=== PATIENT | male | born 1945 | race Hispanic/Latino ===

== ENCOUNTER 2018-03-03 12:20 | Inpatient (IN) | payer MEDICARE ==
[~2018-03-03] VITALS: Ht 170.2 cm; Wt 108.2 kg
[2018-03-03] MEDS ORDERED: PANTOPRAZOLE 40 MG 10ML VIAL IV STA ×2 (13:07)
[2018-03-03] MEDS ORDERED: SODIUM CHLORIDE 0.9% 1000ML 1,000 ML IV STA (13:07)
[2018-03-03] MEDS ORDERED: OCTREOTIDE ACETATE 500 MCG in SODIUM CHLORIDE 0.9% 250ML 250 ML IV ONE (13:15)
[2018-03-03] MEDS ORDERED: CEFEPIME HCL 2 GM VIAL IV ONE (13:15)
[2018-03-03 13:23] LABS: BASOPHILS % 0.7 % (0.0-1.0); EOSINOPHILS # (AUTO) 0.3 (0.0-0.4); EOSINOPHILS % 4.5 % (0.0-6.0); HEMATOCRIT 31.4 % (38.2-49.6); HEMOGLOBIN 11.2 g/dL (14.0-18.0); LYMPHOCYTES # (AUTO) 1.3 (1.0-3.2); LYMPHOCYTES % 22.9 % (18.0-39.1); MEAN CORPUSCULAR HEMOGLOBIN 37.6 pg (28-32); MEAN CORPUSCULAR HGB CONC 35.7 g/dL (31-35); MEAN CORPUSCULAR VOLUME 105.4 fL (81-99); MONOCYTES # (AUTO) 0.5 (0.2-0.8); MONOCYTES % 9.7 % (4.4-11.3); NEUTROPHILS # (AUTO) 3.4 (2.1-6.9); RED BLOOD COUNT 2.98 x10e6/uL (4.3-5.7); RED CELL DISTRIBUTION WIDTH 14.2 % (11.7-14.4)
[2018-03-03 13:28] LABS: INR 1.76; PARTIAL THROMBOPLASTIN TIME 42.4 seconds (23.8-35.5); PROTHROMBIN TIME 21.9 seconds (11.9-14.5)
[2018-03-03 13:29] LABS: PLATELET COUNT 84 x10e3/uL (140-360)
[2018-03-03] MEDS ORDERED: CEFEPIME HCL 2 GM VIAL IV NR (13:30)
[2018-03-03] MEDS ORDERED: LOSARTAN POTAS100 MG PO (14:02)
[2018-03-03] MEDS ORDERED: LEVOTHYROXINE75 MCG PO (14:02)
[2018-03-03] MEDS ORDERED: PROPRANOLOL HCL20 MG PO (14:03)
[2018-03-03 14:57] LABS: ALANINE AMINOTRANSFERASE 36 IU/L (0-55); ALBUMIN 2.5 g/dL (3.5-5.0); ALBUMIN/GLOBULIN RATIO 0.7 (0.8-2.0); ALKALINE PHOSPHATASE 189 IU/L (40-150); AMYLASE 99 U/L (25-125); ANION GAP 14.1 mmol/L (8-16); BLOOD UREA NITROGEN 17 mg/dL (7-26); BUN/CREATININE RATIO 22 (6-25); CALCIUM 8.1 mg/dL (8.4-10.2); CARBON DIOXIDE 19 mmol/L (22-29); CHLORIDE 106 mmol/L (98-107); CREATININE, SERUM 0.79 mg/dL (0.72-1.25); EST GLOMERULAR FILTRATION RATE > 60 ML/MIN (60-); GLUCOSE 104 mg/dL (74-118); LIPASE 90 U/L (8-78); POTASSIUM 4.1 mmol/L (3.5-5.1); SODIUM 135 mmol/L (136-145)
[2018-03-03] MEDS ORDERED: PHYTONADIONE 10 MG/ML AMP SC ONE (15:15)
[2018-03-03] MEDS ORDERED: PROMETHAZINE 12.5MG/ NACL 0.9% 12.5 MG/50 ML BAG IV PRN (15:30)
[2018-03-03] MEDS ORDERED: HYDROMORPHONE 2MG/ML 2 MG/ML ML IV ONE (15:30)
[2018-03-03] MEDS ORDERED: ONDANSETRON HCL INJ 2 MG/ML VIAL IV PRN (15:30)
[2018-03-03] MEDS ORDERED: DIPHENHYDRAMINE HCL INJ 50 MG/ML VIAL IV PRN (15:30)
[2018-03-03] MEDS ORDERED: LACTULOSE SYRUP 20 GM/30 ML UDC PO PRN (15:30)
[2018-03-03] MEDS ORDERED: DIATRIZOATE MEGL/DIATRIZOA SOD 30 ML BTL PO ONE (15:53)
[2018-03-03] MEDS: MORPHINE SULFATE 2 MG/ML SYR IV PRN (16:05)
--- NOTE | 2018-03-03 17:20 | Diagnostic Imaging Report ---
EXAM: CT Abdomen and Pelvis WITHOUT contrast INDICATION: Cirrhosis. Dark stools. Pancreatitis. Gastritis. Colitis. COMPARISON: None. TECHNIQUE: Abdomen and pelvis were scanned utilizing a multidetector helical scanner from the lung base to the pubic symphysis without administration of IV contrast. Absence of intravenous contrast decreases sensitivity for detection of focal lesions and vascular pathology. Coronal and sagittal reformations were obtained. Routine protocol was performed. IV CONTRAST: None. ORAL CONTRAST: Water RADIATION DOSE: Total DLP: ... mGy*cm Estimated effective dose: (DLP x 0.015 x size factor) mSv All CT scans are performed using radiation dose reduction techniques. Technical factors are evaluated and adjusted to ensure appropriate moderation of exposure. Automated dose management technology is applied to adjust the radiation dose to minimize exposure while achieving a diagnostic-quality image. COMPLICATIONS: None FINDINGS: LINES and TUBES: None. LOWER THORAX: Scarring/atelectasis at the lung bases with calcified pleural plaques. HEPATOBILIARY: Shrunken liver with nodular contour consistent with cirrhosis. No biliary ductal dilation. GALLBLADDER: Not well seen SPLEEN: Enlarged spleen measuring 15.0 cm in length. PANCREAS: No focal masses or ductal dilatation. ADRENALS: No adrenal nodules KIDNEYS/URETERS: No hydronephrosis. No cystic or solid mass lesions. No stones. GI TRACT: No abnormal distention, wall thickening, or evidence of bowel obstruction. Scattered diverticulosis without evidence of diverticulitis. Small hiatal hernia. Questionable thickening of the gastric mucosa could be due to gastritis. PELVIC ORGANS/BLADDER: Unremarkable. LYMPH NODES: No lymphadenopathy. VESSELS: Venous collaterals in the left upper abdomen PERITONEUM / RETROPERITONEUM: Moderate ascites. No free air is seen BONES: Unremarkable. SOFT TISSUES: Unremarkable. IMPRESSION: 1. Findings consistent with cirrhosis and portal hypertension with shrunken nodular liver, ascites, splenomegaly and venous collaterals in the left upper abdomen. 2. Questionable thickening of the gastric mucosa could be due to gastritis. 3. Scattered diverticulosis without evidence of diverticulitis. 4. GI consultation recommended. Signed by: Dr. Christoph Champion M.D. on 03/03/2018 5:16 PM
[2018-03-03 17:23] VITALS: BP 151/63
[2018-03-03 17:38] VITALS: BP 151/63
[2018-03-03] MEDS: SODIUM CHLORIDE 0.9% 1000ML 1,000 ML IV SCH ×2 (17:40→23:29)
[2018-03-03 20:00] VITALS: BP 137/64
--- NOTE | 2018-03-03 21:45 | Consultation ---
DATE OF CONSULTATION: March 03, 2018 HISTORY: This is a 73-year-old gentleman who has history of cirrhosis, presented to the hospital because of problems with black tarry stool for 1 day. Patient denies any abdominal pain, nausea, or vomiting. His workup so far revealed that he has bilirubin of 6.8 with AST of 57, and the WBC of 5.5 and hemoglobin 11.2. He also has coagulopathy with PT of 21, INR 1.76. He said that last time when he had upper endoscopy it was about 2 years ago. He did have a CAT scan of abdomen and pelvis which shows cirrhosis with portal hypertension, known splenomegaly, thickening of the gastric mucosa, diverticulosis. OTHER MEDICAL PROBLEMS: Again significant for history of cirrhosis history of hypertension, he denies any history of alcohol abuse. He denies any history of hepatitis. ALLERGIES: COLCHICINE. MEDICATIONS: He is supposed to be on octreotide and pantoprazole. SOCIAL HISTORY: He denies any alcohol use. FAMILY HISTORY: Noncontributory. REVIEW OF SYSTEMS: At this point, he denies any chest pain. Denies any shortness of breath. Denies any dysphagia or odynophagia. Denies any dysuria, hematuria, or syncopal episodes. PHYSICAL EXAMINATION: GENERAL: Patient is awake, alert, appeared to be stable, not in acute distress at this point. VITAL SIGNS: Afebrile currently. HEAD, EYES, EARS, NOSE, AND THROAT: Normocephalic. Sclerae are icteric. NECK: Supple. HEART: Regular. LUNGS: Clear. ABDOMEN: Soft. There is no distention at this point and is nontender. EXTREMITIES: No clubbing. LAB VALUES: PT 21.9, INR 1.76. Sodium 135, bilirubin of 6.8, AST of 57, ALT of 36. WBC of 5.55, hemoglobin of 11.2, hematocrit of 31, and platelet count of 84,000. CT scan essentially showed cirrhosis with evidence of portal hypertension, there is thickening of the stomach. IMPRESSION: 1. Gastrointestinal bleed. Patient having some black tarry stool, obviously with history of esophageal varices. 2. Anemia. 3. Elevation liver function tests. RECOMMENDATIONS: Continue proton pump inhibitor as well as simvastatin. I will give FFPs at this point. Follow labs and proceed with EGD for further evaluation tomorrow and follow clinically. Job#: [id number] cc:MD MAYCO NUNEZ MD
[2018-03-03] MEDS ORDERED: SODIUM CHLORIDE 0.9% 250ML 250 ML ONE (22:57)
[2018-03-03] MEDS: PANTOPRAZOLE 40 MG 10ML VIAL IV SCH (23:29)
[2018-03-04] VITALS: BP 130/61
[2018-03-04 04:00] VITALS: BP 118/56
[2018-03-04] MEDS: OCTREOTIDE ACETATE 500 MCG in SODIUM CHLORIDE 0.9% 250ML 250 ML IV SCH ×2 (04:09→14:03)
[2018-03-04 05:21] LABS: INR 1.83; PROTHROMBIN TIME 22.6 seconds (11.9-14.5)
[2018-03-04 05:29] LABS: ALANINE AMINOTRANSFERASE 27 IU/L (0-55); ALBUMIN 2.2 g/dL (3.5-5.0); ALBUMIN/GLOBULIN RATIO 0.8 (0.8-2.0); ALKALINE PHOSPHATASE 119 IU/L (40-150); ANION GAP 12.2 mmol/L (8-16); BLOOD UREA NITROGEN 19 mg/dL (7-26); BUN/CREATININE RATIO 23 (6-25); CALCIUM 7.4 mg/dL (8.4-10.2); CARBON DIOXIDE 18 mmol/L (22-29); CHLORIDE 106 mmol/L (98-107); CREATININE, SERUM 0.84 mg/dL (0.72-1.25); EST GLOMERULAR FILTRATION RATE > 60 ML/MIN (60-); GLUCOSE 111 mg/dL (74-118); POTASSIUM 4.2 mmol/L (3.5-5.1); SODIUM 132 mmol/L (136-145)
[2018-03-04 06:51] LABS: BASOPHILS % 0.7 % (0.0-1.0); EOSINOPHILS # (AUTO) 0.2 (0.0-0.4); EOSINOPHILS % 3.5 % (0.0-6.0); HEMATOCRIT 25.9 % (38.2-49.6); HEMOGLOBIN 9.1 g/dL (14.0-18.0); LYMPHOCYTES # (AUTO) 0.9 (1.0-3.2); LYMPHOCYTES % 21.1 % (18.0-39.1); MEAN CORPUSCULAR HEMOGLOBIN 37.6 pg (28-32); MEAN CORPUSCULAR HGB CONC 35.1 g/dL (31-35); MONOCYTES # (AUTO) 0.5 (0.2-0.8); MONOCYTES % 11.3 % (4.4-11.3); NEUTROPHILS # (AUTO) 2.7 (2.1-6.9); NEUTROPHILS % 63.2 % (38.7-80.0); RED BLOOD COUNT 2.42 x10e6/uL (4.3-5.7); RED CELL DISTRIBUTION WIDTH 13.9 % (11.7-14.4)
[2018-03-04 06:53] LABS: PLATELET COUNT 39 x10e3/uL (140-360)
[2018-03-04 07:36] LABS: PLATELET ESTIMATE MARKEDLY DECREASED; PLATELET MORPHOLOGY COMMENT NORMAL
[2018-03-04] MEDS: PANTOPRAZOLE 40 MG 10ML VIAL IV SCH ×2 (08:38→21:40)
[2018-03-04] MEDS: MORPHINE SULFATE 2 MG/ML SYR IV PRN (08:40)
[2018-03-04] MEDS: SODIUM CHLORIDE 0.9% 1000ML 1,000 ML IV SCH ×2 (09:50→21:54)
--- NOTE | 2018-03-04 10:26 | History and Physical ---
CHIEF COMPLAINT: Upper GI bleed and esophageal varices. HISTORY: This is a 73-year-old male who presented to the hospital with black tarry stool for approximately 1-2 days. Patient was sent in by his primary care physician, Dr. Shaheen Meyer. The patient has a history of liver cirrhosis. His hemoglobin dropped down 9.1. The patient is otherwise stable. INR is 1.7. The patient had endoscopy approximately 2 years ago. The patient does have liver cirrhosis with portal hypertension and splenomegaly. PAST MEDICAL HISTORY: Known liver cirrhosis with splenomegaly, portal hypertension, diverticulosis. PAST SURGICAL HISTORY: Noncontributory. SOCIAL HISTORY: Patient does not smoke or use alcohol. No recreational drugs. ALLERGIES: COLCHICINE. HOME MEDICATIONS: List is reviewed. REVIEW OF SYSTEMS: No chest pain. No shortness breath. No nausea or vomiting at this time. Positive for black tarry stool. No headache. PHYSICAL EXAMINATION VITAL SIGNS: Temperature is 98, blood pressure 118/56, pulse rate 69, respirations 18. GENERAL: The patient is not in acute distress. He is awake. HEENT: Normocephalic, atraumatic and anicteric. NECK: Supple grossly. PULMONARY: Diminished breath sounds bilaterally. CARDIOVASCULAR: S1 and S2. Regular rate and rhythm. ABDOMEN: Soft. Generalized discomfort. No rebound or guarding. EXTREMITIES: No cyanosis or edema. NEUROLOGICAL: No gross focal deficit. LABORATORY: WBC is 5.5, hemoglobin 11.2 and now down to 9.1, hematocrit 31.4 and now down to 25.9, and platelets are 84,000, and now down to 39. Chemistry: Sodium is 132, potassium 4.2, chloride 106, bicarb 18, BUN 19, creatinine 0.8, glucose is 111. CT scan of the abdomen and pelvis that was done showed that the patient has liver cirrhosis, portal hypertension with shrinking nodular liver, ascites, splenomegaly, and venous collateral to the left upper abdomen. Question thickening of the gastric mucosa due to gastritis. Scattered diverticulosis without diverticulitis. IMPRESSION 1. Sovpr-gy-hloedol blood loss anemia secondary to liver cirrhosis with melena. 2. Baseline liver cirrhosis with advanced varices, most likely with splenomegaly and nodular liver along with portal hypertension. PLAN: The patient will need endoscopy. He will be admitted. Will monitor his blood count closely. PPI. Simvastatin. The patient will have endoscopy today. Job#: [id number] RI
[2018-03-04 11:26] VITALS: BP 144/57
[2018-03-04 16:06] LABS: HEMATOCRIT 26.8 % (38.2-49.6); HEMOGLOBIN 9.5 g/dL (14.0-18.0)
[2018-03-04 16:26] LABS: ANION GAP 13.2 mmol/L (8-16); BLOOD UREA NITROGEN 18 mg/dL (7-26); BUN/CREATININE RATIO 21 (6-25); CALCIUM 7.6 mg/dL (8.4-10.2); CARBON DIOXIDE 18 mmol/L (22-29); CHLORIDE 106 mmol/L (98-107); CREATININE, SERUM 0.86 mg/dL (0.72-1.25); EST GLOMERULAR FILTRATION RATE > 60 ML/MIN (60-); GLUCOSE 112 mg/dL (74-118); POTASSIUM 4.2 mmol/L (3.5-5.1); SODIUM 133 mmol/L (136-145)
[2018-03-04 16:49] VITALS: BP 152/69
[2018-03-04] MEDS ORDERED: PROPOFOL IV EMULSION 10 MG/ML 20 ML VIAL ONE (19:35)
[2018-03-04 20:00] VITALS: BP 143/66
[2018-03-04] MEDS ORDERED: PHYTONADIONE 5 MG TAB PO ONE (22:00)
[2018-03-05] VITALS (8 sets, daily range): BP systolic 133–160; BP diastolic 61–70
[2018-03-05] MEDS: OCTREOTIDE ACETATE 500 MCG in SODIUM CHLORIDE 0.9% 250ML 250 ML IV SCH (00:06)
[2018-03-05] MEDS ORDERED: OCTREOTIDE ACETATE 1 ML ONE (02:11)
[2018-03-05] MEDS ORDERED: SODIUM CHLORIDE 0.9% 250ML 250 ML ONE (02:16)
[2018-03-05 05:25] LABS: BASOPHILS % 0.6 % (0.0-1.0); EOSINOPHILS # (AUTO) 0.1 (0.0-0.4); HEMATOCRIT 23.2 % (38.2-49.6); HEMOGLOBIN 8.2 g/dL (14.0-18.0); LYMPHOCYTES # (AUTO) 0.9 (1.0-3.2); LYMPHOCYTES % 27.1 % (18.0-39.1); MEAN CORPUSCULAR HEMOGLOBIN 37.4 pg (28-32); MEAN CORPUSCULAR HGB CONC 35.3 g/dL (31-35); MEAN CORPUSCULAR VOLUME 105.9 fL (81-99); MONOCYTES # (AUTO) 0.4 (0.2-0.8); MONOCYTES % 10.9 % (4.4-11.3); NEUTROPHILS # (AUTO) 1.9 (2.1-6.9); NEUTROPHILS % 57.1 % (38.7-80.0); RED BLOOD COUNT 2.19 x10e6/uL (4.3-5.7); RED CELL DISTRIBUTION WIDTH 13.7 % (11.7-14.4)
[2018-03-05 05:27] LABS: PLATELET COUNT 31 x10e3/uL (140-360)
[2018-03-05 05:50] LABS: ANION GAP 10.9 mmol/L (8-16); BLOOD UREA NITROGEN 16 mg/dL (7-26); BUN/CREATININE RATIO 21 (6-25); CALCIUM 7.3 mg/dL (8.4-10.2); CARBON DIOXIDE 19 mmol/L (22-29); CHLORIDE 112 mmol/L (98-107); CREATININE, SERUM 0.78 mg/dL (0.72-1.25); EST GLOMERULAR FILTRATION RATE > 60 ML/MIN (60-); GLUCOSE 133 mg/dL (74-118); POTASSIUM 3.9 mmol/L (3.5-5.1); SODIUM 138 mmol/L (136-145)
[2018-03-05 06:11] LABS: FERRITIN 492.84 ng/mL (21.81-274.66)
[2018-03-05 06:42] LABS: FOLATE 16.7 ng/mL (7.0-15.4)
[2018-03-05] MEDS: PHYTONADIONE 5 MG TAB PO SCH (09:00)
[2018-03-05] MEDS: PANTOPRAZOLE 40 MG 10ML VIAL IV SCH ×2 (09:00→20:31)
[2018-03-05] MEDS ORDERED: FUROSEMIDE INJ 10 MG/ML 4 ML VIAL IV NR (14:00)
[2018-03-05 14:32] LABS: HEMATOCRIT 23.4 % (38.2-49.6); HEMOGLOBIN 8.2 g/dL (14.0-18.0)
[2018-03-05] MEDS: PROPRANOLOL HCL 10 MG TAB PO SCH (17:00)
[2018-03-05] MEDS: RIFAXIMIN 550 MG TABLET PO SCH (17:00)
[2018-03-05] MEDS ORDERED: FUROSEMIDE INJ 10 MG/ML 4 ML VIAL IV ONE (21:15)
[2018-03-06] VITALS (8 sets, daily range): BP systolic 117–146; BP diastolic 57–87
[2018-03-06 05:33] LABS: BASOPHILS % 0.6 % (0.0-1.0); EOSINOPHILS # (AUTO) 0.1 (0.0-0.4); EOSINOPHILS % 3.3 % (0.0-6.0); LYMPHOCYTES % 30.7 % (18.0-39.1); MEAN CORPUSCULAR HEMOGLOBIN 38.3 pg (28-32); MEAN CORPUSCULAR HGB CONC 36.4 g/dL (31-35); MEAN CORPUSCULAR VOLUME 105.3 fL (81-99); MONOCYTES # (AUTO) 0.4 (0.2-0.8); MONOCYTES % 10.8 % (4.4-11.3); NEUTROPHILS # (AUTO) 1.8 (2.1-6.9); NEUTROPHILS % 54.3 % (38.7-80.0); RED BLOOD COUNT 2.09 x10e6/uL (4.3-5.7); RED CELL DISTRIBUTION WIDTH 13.7 % (11.7-14.4)
[2018-03-06 05:36] LABS: PLATELET COUNT 28 x10e3/uL (140-360)
[2018-03-06 05:48] LABS: INR 1.94; PROTHROMBIN TIME 23.7 seconds (11.9-14.5)
[2018-03-06 05:49] LABS: PARTIAL THROMBOPLASTIN TIME 44.2 seconds (23.8-35.5)
[2018-03-06 05:53] LABS: ALANINE AMINOTRANSFERASE 27 IU/L (0-55); ALBUMIN/GLOBULIN RATIO 0.8 (0.8-2.0); ALKALINE PHOSPHATASE 98 IU/L (40-150); ANION GAP 10.7 mmol/L (8-16); BLOOD UREA NITROGEN 13 mg/dL (7-26); BUN/CREATININE RATIO 18 (6-25); CALCIUM 7.2 mg/dL (8.4-10.2); CARBON DIOXIDE 20 mmol/L (22-29); CHLORIDE 110 mmol/L (98-107); CREATININE, SERUM 0.73 mg/dL (0.72-1.25); EST GLOMERULAR FILTRATION RATE > 60 ML/MIN (60-); GLUCOSE 104 mg/dL (74-118); POTASSIUM 3.7 mmol/L (3.5-5.1); SODIUM 137 mmol/L (136-145)
[2018-03-06] MEDS: LEVOTHYROXINE SODIUM 75 MCG TAB PO SCH (06:11)
[2018-03-06] MEDS: PHYTONADIONE 5 MG TAB PO SCH (08:54)
[2018-03-06] MEDS: PANTOPRAZOLE 40 MG 10ML VIAL IV SCH (08:54)
[2018-03-06] MEDS: RIFAXIMIN 550 MG TABLET PO SCH ×2 (08:54→17:29)
[2018-03-06] MEDS: PROPRANOLOL HCL 10 MG TAB PO SCH ×2 (08:54→17:29)
[2018-03-06] MEDS ORDERED: SPIRONOLACTONE 25 MG TAB PO ONE (12:35)
[2018-03-06] MEDS ORDERED: FUROSEMIDE INJ 10 MG/ML 4 ML VIAL IV ONE (12:35)
[2018-03-06] MEDS ORDERED: SODIUM CHLORIDE 0.9% 250ML 250 ML ONE (16:17)
[2018-03-06] MEDS: PANTOPRAZOLE SOD 40 MG TABEC PO SCH (17:29)
[2018-03-07] VITALS (9 sets, daily range): BP systolic 108–149; BP diastolic 53–98
[2018-03-07 04:52] LABS: BASOPHILS % 0.4 % (0.0-1.0); EOSINOPHILS # (AUTO) 0.1 (0.0-0.4); EOSINOPHILS % 4.6 % (0.0-6.0); HEMATOCRIT 21.9 % (38.2-49.6); HEMOGLOBIN 7.8 g/dL (14.0-18.0); LYMPHOCYTES % 34.9 % (18.0-39.1); MEAN CORPUSCULAR HEMOGLOBIN 37.3 pg (28-32); MEAN CORPUSCULAR HGB CONC 35.6 g/dL (31-35); MEAN CORPUSCULAR VOLUME 104.8 fL (81-99); MONOCYTES # (AUTO) 0.3 (0.2-0.8); MONOCYTES % 10.7 % (4.4-11.3); NEUTROPHILS # (AUTO) 1.4 (2.1-6.9); RED BLOOD COUNT 2.09 x10e6/uL (4.3-5.7); RED CELL DISTRIBUTION WIDTH 13.7 % (11.7-14.4)
[2018-03-07 04:55] LABS: PLATELET COUNT 37 x10e3/uL (140-360)
[2018-03-07] MEDS: LEVOTHYROXINE SODIUM 75 MCG TAB PO SCH (04:58)
[2018-03-07 07:54] LABS: HEMATOCRIT 21.8 % (38.2-49.6); HEMOGLOBIN 7.9 g/dL (14.0-18.0)
[2018-03-07] MEDS: FUROSEMIDE INJ 10 MG/ML 4 ML VIAL IV SCH (08:25)
[2018-03-07] MEDS: PANTOPRAZOLE SOD 40 MG TABEC PO SCH ×2 (08:25→16:36)
[2018-03-07] MEDS: SPIRONOLACTONE 25 MG TAB PO SCH (08:25)
[2018-03-07] MEDS: PROPRANOLOL HCL 10 MG TAB PO SCH ×2 (08:25→16:36)
[2018-03-07] MEDS: PHYTONADIONE 5 MG TAB PO SCH (08:25)
[2018-03-07] MEDS: RIFAXIMIN 550 MG TABLET PO SCH ×2 (08:25→16:36)
[2018-03-07] MEDS ORDERED: FUROSEMIDE INJ 10 MG/ML 4 ML VIAL IV NR (19:00)
[2018-03-07] MEDS ORDERED: FUROSEMIDE INJ 10 MG/ML 2 ML VIAL IV ONE (21:30)
[2018-03-08 00:45] VITALS: BP 134/59
[2018-03-08 04:55] LABS: BASOPHILS % 0.3 % (0.0-1.0); EOSINOPHILS # (AUTO) 0.2 (0.0-0.4); EOSINOPHILS % 5.8 % (0.0-6.0); HEMATOCRIT 22.3 % (38.2-49.6); HEMOGLOBIN 8.2 g/dL (14.0-18.0); LYMPHOCYTES % 33.5 % (18.0-39.1); MEAN CORPUSCULAR HGB CONC 36.8 g/dL (31-35); MEAN CORPUSCULAR VOLUME 103.2 fL (81-99); MONOCYTES # (AUTO) 0.4 (0.2-0.8); MONOCYTES % 11.3 % (4.4-11.3); NEUTROPHILS # (AUTO) 1.5 (2.1-6.9); NEUTROPHILS % 48.8 % (38.7-80.0); RED BLOOD COUNT 2.16 x10e6/uL (4.3-5.7); RED CELL DISTRIBUTION WIDTH 13.8 % (11.7-14.4)
[2018-03-08 04:58] LABS: PLATELET COUNT 43 x10e3/uL (140-360)
[2018-03-08] MEDS: LEVOTHYROXINE SODIUM 75 MCG TAB PO SCH (05:34)
[2018-03-08 05:36] VITALS: BP 117/56
[2018-03-08 06:30] LABS: INR 1.89; PROTHROMBIN TIME 23.2 seconds (11.9-14.5)
[2018-03-08 06:31] LABS: PARTIAL THROMBOPLASTIN TIME 43.3 seconds (23.8-35.5)
[2018-03-08 08:00] VITALS: BP 111/54
[2018-03-08] MEDS: SPIRONOLACTONE 25 MG TAB PO SCH (08:48)
[2018-03-08] MEDS: PROPRANOLOL HCL 10 MG TAB PO SCH (08:48)
[2018-03-08] MEDS: RIFAXIMIN 550 MG TABLET PO SCH (08:48)
[2018-03-08] MEDS: PANTOPRAZOLE SOD 40 MG TABEC PO SCH (08:48)
[2018-03-08] MEDS: FUROSEMIDE INJ 10 MG/ML 4 ML VIAL IV SCH (08:48)
[2018-03-08 09:58] VITALS: BP 111/54
[2018-03-08] MEDS: PHYTONADIONE 5 MG TAB PO SCH (11:10)
[2018-03-08 12:00] VITALS: BP 123/53
--- NOTE | 2018-03-08 15:43 | Discharge Summary ---
PRIMARY CARE PHYSICIAN: Dr. Shaheen Meyer. CONSULTANTS 1. Dr. Nigel Cintron 2. Dr. Heather Gillespie FINAL DIAGNOSES 1. Acute blood loss anemia secondary to esophageal varices bleed status post esophagogastroduodenoscopy with esophageal banding. 2. Advanced liver cirrhosis. 3. Baseline multiple medical problems. SUMMARY: Patient is a 73-year-old male with esophageal varices, portal hypertension, liver cirrhosis advanced. Came in with hematemesis. The patient underwent an EGD. He had multiple bandings done. The patient is stable. He did not have any further bleed at this time. Patient is stable. Hemoglobin and hematocrit are 8.2 and 22.3. Platelets are 43,000. The patient is stable. No further bleed. He has chronic thrombocytopenia secondary to his advanced liver cirrhosis. Discussed with the patient at length. His coagulopathy was treated with vitamin K. Patient is stable at this time. He will go home today and follow up with Dr. Cintron within a week or two and his family physician within a week as well. The patient is stable and discharged home. Discussed with the patient at length. Job#: [id number]
== END 2018-03-08 14:46 | disposition home or self-care (01) | DRG 432 ==
LOC: ER 12:20 → ERHOLD 15:04 → IMCU 17:00 → OBSVTOIN 03-04 09:39 → MED/SURG2 03-04 21:11
PROVIDERS: ADMIT Internal Medicine; ATTEND Internal Medicine
PROC: 30233K1 Transfusion of Nonautologous Frozen Plasma into Peripheral Vein, Percutaneous Approach (ICD-10-PCS; 2018-03-03)
PROC: 06L38CZ Occlusion of Esophageal Vein with Extraluminal Device, Via Natural or Artificial Opening Endoscopic (ICD-10-PCS; principal; 2018-03-04 13:00)
PROC: 30233R1 Transfusion of Nonautologous Platelets into Peripheral Vein, Percutaneous Approach (ICD-10-PCS; 2018-03-06)
DX: K74.60 Unspecified cirrhosis of liver (principal); I85.11 Secondary esophageal varices with bleeding; D62 Acute posthemorrhagic anemia; R18.8 Other ascites; K76.6 Portal hypertension; D69.59 Other secondary thrombocytopenia; R16.1 Splenomegaly, not elsewhere classified; K57.90 Diverticulosis of intestine, part unspecified, without perforation or abscess without bleeding; Z88.8 Allergy status to other drugs, medicaments and biological substances; K31.89 Other diseases of stomach and duodenum; K44.9 Diaphragmatic hernia without obstruction or gangrene
CPT/HCPCS: 36415; 43235; 74176; 80048; 80053; 82105; 82140; 82150; 82248; 82270; 82607; 82728; 82746; 83540; 83690; 84443; 84466; 85014; 85018; 85025; 85610; 85730; 86850; 86900; 93005; 99284; G0378; J0692; J1940; J2270; J2353; J2405; J3430; J7030; J7050; P9017; P9034

== ENCOUNTER 2018-03-20 07:19 | Inpatient (IN) | payer MEDICARE ==
[~2018-03-20] VITALS: Ht 170.2 cm; Wt 100.4 kg
[~2018-03-20 07:19] MED LIST: LEVOTHYROXINE75 MCG PO; LOSARTAN POTAS100 MG PO; PROPRANOLOL HCL20 MG PO
--- OUTSIDE RECORDS SUMMARY | 2018-03-20 07:21 | XMS REPORT ---
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 Allergies, Adverse Reactions, Alerts This patient has no known allergies or adverse reactions. Medications This patient has no known medications. Results Test Description Test Time Test Comments Text Results Atomic Results Result Comments CT ABDOMEN/PELVIS WO 2018-03-03 17:09:00 [place] [address] Patient Name: GISELLE ETIENNE MR #: [id number] : 1945 Age/Sex: 73/M Req #: [id number] Adm Physician: MAYCO NIEVES MD Ordered by: GABRIELE ISAAC MD Report #: [id number] Location: [facility] Room/Bed: [place] [address] Procedure: [id number] CT/CT ABDOMEN/PELVIS WO Exam Date: 03/03/18 Exam Time: 1700 REPORT STATUS: Signed EXAM: CT Abdomen and Pelvis WITHOUT contrast INDIC ATION: Cirrhosis. Dark stools. Pancreatitis. Gastritis. Colitis. COMPARISON: None. TECHNIQUE: Abdomen and pelvis were scanned utilizing a multidetector helical scanner from the lung base to the pubic symphysis without administration of IV contrast. Absence of intravenous contrast decreases sensitivity for detection of focal lesions and vascular pathology. Coronal and sagittal reformations were obtained. Routine protocol was performed. IV CONTRAST: None. ORAL CONTRAST: Water RADIATION DOSE: Total DLP: ... mGy*cm Estimated effective dose: (DLP x 0.015 x size factor) mSv All CT scans are performed using radiation dose reduction techniques. Technical factors are evaluated and adjusted to ensure appropriate moderation of exposure. Automated dose management technology is applied to adjust the radiation dose to minimize exposure while achieving a diagnostic-quality image. COMPLICATIONS: None FINDINGS: LINES and TUBES: None. LOWER THORAX: Scarring/atelectasis at the lung bases with calcified pleural plaques. HEPATOBILIARY: Shrunken liver with nodular contour consistent with cirrhosis. No biliary ductal dilation. GALLBLADDER: Not well seen SPLEEN: Enlarged spleen measuring 15.0 cm in length. PANCREAS: No focal masses or ductal dilatation. ADRENALS: No adrenal nodules KIDNEYS/URETERS: No hydronephrosis. No cystic or solid mass lesions. No stones. GI TRACT: No abnormal distention, wall thickening, or evidence of bowel obstruction. Scattered diverticulosis without evidence of diverticulitis. Small hiatal hernia. Questionable thickening of the gastric mucosa could be due to gastritis. PELVIC ORGANS/BLADDER: Unremarkable. LYMPH NODES: No lymphadenopathy. VESSELS: Venous collaterals in the left upper abdomen PERITONEUM / RETROPERITONEUM: Moderate ascites. No free air is seen BONES: Unremarkable. SOFT TISSUES: Unremarkable. IMPRESSION: 1. Findings consistent with cirrhosis and portal hypertension with shrunken nodular liver, ascites, splenomegaly and venous collaterals in the left upper abdomen. 2. Questionable thickening of the gastric mucosa could be due to gastritis. 3. Scattered diverticulosis without evidence of diverticulitis. 4. GI consultation recommended. Signed by: Dr. Christoph Champion M.D. on 03/03/2018 5:16 PM Dictated By: CHRISTOPH CHAMPION MD, MD 15 Transcribed By: WOLF on 03/03/181715 COPY TO: GABRIELE ISAAC MD
[2018-03-20] MEDS ORDERED: FAMOTIDINE 20 MG/2 ML VIAL IV STA (07:35)
[2018-03-20 08:42] LABS: BASOPHILS % 0.5 % (0.0-1.0); EOSINOPHILS # (AUTO) 0.2 (0.0-0.4); EOSINOPHILS % 2.6 % (0.0-6.0); HEMATOCRIT 26.9 % (38.2-49.6); HEMOGLOBIN 9.9 g/dL (14.0-18.0); LYMPHOCYTES # (AUTO) 1.3 (1.0-3.2); LYMPHOCYTES % 17.2 % (18.0-39.1); MEAN CORPUSCULAR HEMOGLOBIN 37.6 pg (28-32); MEAN CORPUSCULAR HGB CONC 36.8 g/dL (31-35); MEAN CORPUSCULAR VOLUME 102.3 fL (81-99); MONOCYTES # (AUTO) 0.8 (0.2-0.8); MONOCYTES % 10.5 % (4.4-11.3); NEUTROPHILS # (AUTO) 5.1 (2.1-6.9); NEUTROPHILS % 68.8 % (38.7-80.0); PLATELET COUNT 67 x10e3/uL (140-360); RED BLOOD COUNT 2.63 x10e6/uL (4.3-5.7); RED CELL DISTRIBUTION WIDTH 14.1 % (11.7-14.4)
[2018-03-20 08:52] LABS: INR 1.74; PROTHROMBIN TIME 21.7 seconds (11.9-14.5)
[2018-03-20 09:00] LABS: ALANINE AMINOTRANSFERASE 38 IU/L (0-55); ALBUMIN 2.7 g/dL (3.5-5.0); ALBUMIN/GLOBULIN RATIO 0.6 (0.8-2.0); ALKALINE PHOSPHATASE 228 IU/L (40-150); ANION GAP 11.6 mmol/L (8-16); BLOOD UREA NITROGEN 14 mg/dL (7-26); BUN/CREATININE RATIO 16 (6-25); CALCIUM 8.6 mg/dL (8.4-10.2); CARBON DIOXIDE 19 mmol/L (22-29); CHLORIDE 107 mmol/L (98-107); EST GLOMERULAR FILTRATION RATE > 60 ML/MIN (60-); GLUCOSE 128 mg/dL (74-118); POTASSIUM 3.6 mmol/L (3.5-5.1); SODIUM 134 mmol/L (136-145)
[2018-03-20] MEDS ORDERED: SPIRONOLACTONE50 MG PO (10:55)
[2018-03-20] MEDS ORDERED: PANTOPRAZOLE SO40 MG PO (10:55)
[2018-03-20] MEDS ORDERED: FUROSEMIDE40 MG PO (10:55)
[2018-03-20] MEDS ORDERED: NIFEDIPINE CR 30 MG TAB PO NR (12:00)
[2018-03-20] MEDS ORDERED: PHYTONADIONE 10 MG/ML AMP SQ NR (12:00)
[2018-03-20 13:15] LABS: HEMATOCRIT 25.8 % (38.2-49.6); HEMOGLOBIN 9.4 g/dL (14.0-18.0)
[2018-03-20] MEDS: IRON SUCROSE 100 MG in SODIUM CHLORIDE 0.9% 100 ML 100 ML IV SCH (14:20)
[2018-03-20 15:32] LABS: HEMATOCRIT 26.2 % (38.2-49.6); HEMOGLOBIN 9.5 g/dL (14.0-18.0)
[2018-03-20 17:30] VITALS: BP 149/63
[2018-03-20 17:39] VITALS: BP 149/63
[2018-03-20 17:48] VITALS: BP 149/63
[2018-03-20 18:50] LABS: HEMATOCRIT 24.3 % (38.2-49.6); HEMOGLOBIN 8.8 g/dL (14.0-18.0)
[2018-03-20 20:00] VITALS: BP 153/75
[2018-03-20] MEDS: PROPRANOLOL HCL 10 MG TAB PO SCH (20:57)
[2018-03-20 21:47] VITALS: BP 153/65
[2018-03-20 23:02] LABS: HEMATOCRIT 23.3 % (38.2-49.6); HEMOGLOBIN 8.3 g/dL (14.0-18.0)
[2018-03-21] VITALS (8 sets, daily range): BP systolic 120–155; BP diastolic 59–67
[2018-03-21 02:23] LABS: HEMATOCRIT 22.2 % (38.2-49.6); HEMOGLOBIN 8.1 g/dL (14.0-18.0)
[2018-03-21 05:51] LABS: BASOPHILS % 0.6 % (0.0-1.0); EOSINOPHILS # (AUTO) 0.2 (0.0-0.4); EOSINOPHILS % 4.3 % (0.0-6.0); HEMATOCRIT 21.2 % (38.2-49.6); HEMOGLOBIN 7.8 g/dL (14.0-18.0); LYMPHOCYTES # (AUTO) 1.4 (1.0-3.2); LYMPHOCYTES % 30.4 % (18.0-39.1); MEAN CORPUSCULAR HGB CONC 36.8 g/dL (31-35); MEAN CORPUSCULAR VOLUME 103.4 fL (81-99); MONOCYTES # (AUTO) 0.5 (0.2-0.8); MONOCYTES % 9.6 % (4.4-11.3); NEUTROPHILS # (AUTO) 2.6 (2.1-6.9); NEUTROPHILS % 54.9 % (38.7-80.0); RED BLOOD COUNT 2.05 x10e6/uL (4.3-5.7); RED CELL DISTRIBUTION WIDTH 13.8 % (11.7-14.4)
[2018-03-21] MEDS: LEVOTHYROXINE SODIUM 75 MCG TAB PO SCH (05:54)
[2018-03-21 06:37] LABS: PLATELET COUNT 39 x10e3/uL (140-360)
[2018-03-21] MEDS: SPIRONOLACTONE 25 MG TAB PO SCH (08:23)
[2018-03-21] MEDS: PANTOPRAZOLE SOD 40 MG TABEC PO SCH (08:23)
[2018-03-21] MEDS: FUROSEMIDE 40 MG TAB PO SCH (08:24)
[2018-03-21] MEDS: NIFEDIPINE CR 30 MG TAB PO SCH (08:24)
[2018-03-21] MEDS: PROPRANOLOL HCL 10 MG TAB PO SCH ×2 (08:24→16:21)
[2018-03-21] MEDS ORDERED: PHYTONADIONE 10 MG/ML AMP SQ NR (09:45)
[2018-03-21] MEDS ORDERED: SODIUM CHLORIDE 0.9% 250ML 250 ML IV NR (10:00)
[2018-03-21] MEDS ORDERED: OCTREOTIDE ACETATE 500 MCG in SODIUM CHLORIDE 0.9% 250ML 250 ML IV STA (11:10)
[2018-03-21] MEDS: SUCRALFATE 1 GM TAB PO SCH ×3 (11:32→20:00)
--- NOTE | 2018-03-21 12:34 | Consultation ---
DATE OF CONSULTATION: March 21, 2018 HPI: This is a 73-year-old who has a history of cirrhosis, with esophageal varices status post banding before, presented to the hospital because of 1-day history of black tarry stool. Patient was found to have anemia, hemoglobin as low as 7.8. He also has thrombocytopenia with platelet count of 31 and also coagulopathy. His medical problem in the past is significant for history of cirrhosis with both hypertension and esophageal varices, status post banding on March 04, 2018. ALLERGIES: NONE. SOCIAL HISTORY: There is no alcohol abuse. FAMILY HISTORY: Noncontributory. REVIEW OF SYSTEMS: At this point, he denies any chest pain. Denies any shortness of breath. Denies any dysphagia or odynophagia. Denies any dysuria, hematuria, or any kind of syncopal episode. PHYSICAL EXAMINATION GENERAL: Patient is awake, alert, and appears to be stable. VITAL SIGNS: Afebrile with stable vital signs. HEAD, EYES, EARS, NOSE, AND THROAT: Normocephalic, atraumatic. Sclerae are icteric. NECK: Supple. HEART: Regular. LUNGS: Clear. ABDOMEN: Soft. There is no distention at this point and is nontender. LAB VALUES: Bilirubin 7.5, AST of 56, and ALT of 38, alk phos is 228. Sodium 134. Hemoglobin on admission was 9.9, it dropped slowly to 7.8 and platelet count was 67 on admission and this has dropped to 39. IMPRESSION 1. Gastrointestinal bleed. Patient has esophageal varices, status post banding about 2 weeks or so ago. 2. Cirrhosis. 3. Anemia/thrombocytopenia. 4. Coagulopathy. RECOMMENDATIONS: We will start on octreotide drip and then also transfuse packed red blood cells, platelets as well as FFPs and also, we are going to give him some vitamin K. We will proceed with EGD. We will see him again tomorrow and follow labs and clinically. Job#: [id number] MARIELENA cc:DR. MAYCO DOWLING
[2018-03-21] MEDS: IRON SUCROSE 100 MG in SODIUM CHLORIDE 0.9% 100 ML 100 ML IV SCH (13:22)
[2018-03-21] MEDS ORDERED: LIDOCAINE HCL 2% LOCAL INJ 5 ML SDV VIAL INJ ONE (15:49)
[2018-03-21] MEDS ORDERED: PROPOFOL IV EMULSION 10 MG/ML 20 ML VIAL ONE (15:49)
[2018-03-21] MEDS: FUROSEMIDE INJ 10 MG/ML 2 ML VIAL IV PRN (16:11)
[2018-03-21] MEDS: PANTOPRAZOLE 40 MG 10ML VIAL IV SCH (16:21)
[2018-03-21] MEDS: OCTREOTIDE ACETATE 500 MCG in SODIUM CHLORIDE 0.9% 250ML 249 ML IV SCH (22:07)
[2018-03-21] MEDS ORDERED: SODIUM CHLORIDE 0.9% 250ML 250 ML ONE (22:15)
[2018-03-22] VITALS (7 sets, daily range): BP systolic 96–125; BP diastolic 51–58
[2018-03-22] MEDS ORDERED: SODIUM CHLORIDE 0.9% 250ML 250 ML ONE ×2 (01:30→22:26)
[2018-03-22] MEDS: LEVOTHYROXINE SODIUM 75 MCG TAB PO SCH (03:58)
[2018-03-22] MEDS: FUROSEMIDE INJ 10 MG/ML 2 ML VIAL IV PRN (04:25)
[2018-03-22 06:46] LABS: BASOPHILS % 0.5 % (0.0-1.0); EOSINOPHILS # (AUTO) 0.2 (0.0-0.4); EOSINOPHILS % 4.3 % (0.0-6.0); HEMATOCRIT 24.2 % (38.2-49.6); LYMPHOCYTES # (AUTO) 1.3 (1.0-3.2); LYMPHOCYTES % 33.7 % (18.0-39.1); MEAN CORPUSCULAR HGB CONC 37.2 g/dL (31-35); MEAN CORPUSCULAR VOLUME 96.8 fL (81-99); MONOCYTES # (AUTO) 0.3 (0.2-0.8); MONOCYTES % 8.9 % (4.4-11.3); NEUTROPHILS # (AUTO) 1.9 (2.1-6.9); NEUTROPHILS % 52.3 % (38.7-80.0); PLATELET COUNT 60 x10e3/uL (140-360); RED CELL DISTRIBUTION WIDTH 17.2 % (11.7-14.4)
[2018-03-22 07:03] LABS: INR 1.52; PROTHROMBIN TIME 19.6 seconds (11.9-14.5)
[2018-03-22 07:10] LABS: ALANINE AMINOTRANSFERASE 31 IU/L (0-55); ALBUMIN 2.5 g/dL (3.5-5.0); ALBUMIN/GLOBULIN RATIO 0.7 (0.8-2.0); ALKALINE PHOSPHATASE 104 IU/L (40-150); ANION GAP 11.4 mmol/L (8-16); BLOOD UREA NITROGEN 18 mg/dL (7-26); BUN/CREATININE RATIO 22 (6-25); CALCIUM 8.7 mg/dL (8.4-10.2); CARBON DIOXIDE 21 mmol/L (22-29); CHLORIDE 107 mmol/L (98-107); CREATININE, SERUM 0.81 mg/dL (0.72-1.25); EST GLOMERULAR FILTRATION RATE > 60 ML/MIN (60-); GLUCOSE 109 mg/dL (74-118); POTASSIUM 3.4 mmol/L (3.5-5.1); SODIUM 136 mmol/L (136-145)
[2018-03-22] MEDS: PANTOPRAZOLE SOD 40 MG TABEC PO SCH (07:30)
[2018-03-22] MEDS: SUCRALFATE 1 GM TAB PO SCH ×4 (07:30→20:58)
[2018-03-22] MEDS ORDERED: SIMETHICONE 40 MG/0.6 ML BTL ONE (07:56)
[2018-03-22] MEDS: PROPRANOLOL HCL 10 MG TAB PO SCH ×2 (09:00→17:00)
[2018-03-22] MEDS: NIFEDIPINE CR 30 MG TAB PO SCH (09:00)
[2018-03-22] MEDS: SPIRONOLACTONE 25 MG TAB PO SCH (09:00)
[2018-03-22] MEDS: FUROSEMIDE 40 MG TAB PO SCH (09:00)
[2018-03-22] MEDS: PANTOPRAZOLE 40 MG 10ML VIAL IV SCH ×3 (09:00→17:33)
[2018-03-22] MEDS ORDERED: ONDANSETRON HCL INJ 2 MG/ML VIAL ONE (09:03)
[2018-03-22] MEDS: OCTREOTIDE ACETATE 500 MCG in SODIUM CHLORIDE 0.9% 250ML 249 ML IV SCH ×3 (09:30→22:29)
[2018-03-22 12:29] LABS: HEMATOCRIT 24.8 % (38.2-49.6); HEMOGLOBIN 8.9 g/dL (14.0-18.0)
[2018-03-22] MEDS: IRON SUCROSE 100 MG in SODIUM CHLORIDE 0.9% 100 ML 100 ML IV SCH (13:14)
[2018-03-22 19:53] LABS: HEMATOCRIT 26.4 % (38.2-49.6); HEMOGLOBIN 9.4 g/dL (14.0-18.0)
[2018-03-22] MEDS ORDERED: OCTREOTIDE ACETATE 2 ML ONE (22:21)
[2018-03-23] VITALS (9 sets, daily range): BP systolic 106–130; BP diastolic 51–69
[2018-03-23] MEDS: LEVOTHYROXINE SODIUM 75 MCG TAB PO SCH (05:41)
[2018-03-23 06:10] LABS: EOSINOPHILS # (AUTO) 0.1 (0.0-0.4); EOSINOPHILS % 4.7 % (0.0-6.0); HEMATOCRIT 24.6 % (38.2-49.6); LYMPHOCYTES # (AUTO) 0.9 (1.0-3.2); LYMPHOCYTES % 30.9 % (18.0-39.1); MEAN CORPUSCULAR HEMOGLOBIN 35.9 pg (28-32); MEAN CORPUSCULAR HGB CONC 36.6 g/dL (31-35); MONOCYTES # (AUTO) 0.3 (0.2-0.8); MONOCYTES % 10.6 % (4.4-11.3); NEUTROPHILS # (AUTO) 1.6 (2.1-6.9); NEUTROPHILS % 52.5 % (38.7-80.0); PLATELET COUNT 51 x10e3/uL (140-360); RED BLOOD COUNT 2.51 x10e6/uL (4.3-5.7); RED CELL DISTRIBUTION WIDTH 16.9 % (11.7-14.4)
[2018-03-23 06:37] LABS: ALANINE AMINOTRANSFERASE 29 IU/L (0-55); ALBUMIN 2.4 g/dL (3.5-5.0); ALKALINE PHOSPHATASE 92 IU/L (40-150); ANION GAP 9.4 mmol/L (8-16); BLOOD UREA NITROGEN 14 mg/dL (7-26); BUN/CREATININE RATIO 19 (6-25); CALCIUM 8.3 mg/dL (8.4-10.2); CARBON DIOXIDE 19 mmol/L (22-29); CHLORIDE 109 mmol/L (98-107); CREATININE, SERUM 0.75 mg/dL (0.72-1.25); EST GLOMERULAR FILTRATION RATE > 60 ML/MIN (60-); GLUCOSE 109 mg/dL (74-118); POTASSIUM 3.4 mmol/L (3.5-5.1); SODIUM 134 mmol/L (136-145)
[2018-03-23 08:07] LABS: ALBUMIN/GLOBULIN RATIO 0.7 (0.8-2.0)
[2018-03-23] MEDS: SUCRALFATE 1 GM TAB PO SCH ×4 (08:30→21:05)
[2018-03-23] MEDS: OCTREOTIDE ACETATE 500 MCG in SODIUM CHLORIDE 0.9% 250ML 249 ML IV SCH ×2 (08:57→15:30)
[2018-03-23] MEDS: PANTOPRAZOLE 40 MG 10ML VIAL IV SCH ×2 (10:00→21:00)
[2018-03-23] MEDS: PROPRANOLOL HCL 10 MG TAB PO SCH ×2 (10:00→17:30)
[2018-03-23] MEDS: SPIRONOLACTONE 25 MG TAB PO SCH (10:00)
[2018-03-23] MEDS: FUROSEMIDE 40 MG TAB PO SCH (10:00)
[2018-03-23] MEDS: NIFEDIPINE CR 30 MG TAB PO SCH (10:00)
[2018-03-24] VITALS (10 sets, daily range): BP systolic 94–134; BP diastolic 43–62
[2018-03-24] MEDS: LEVOTHYROXINE SODIUM 75 MCG TAB PO SCH (06:11)
[2018-03-24 06:13] LABS: BASOPHILS % 0.8 % (0.0-1.0); EOSINOPHILS # (AUTO) 0.2 (0.0-0.4); EOSINOPHILS % 3.9 % (0.0-6.0); HEMATOCRIT 24.7 % (38.2-49.6); LYMPHOCYTES # (AUTO) 1.3 (1.0-3.2); LYMPHOCYTES % 26.4 % (18.0-39.1); MEAN CORPUSCULAR HEMOGLOBIN 35.3 pg (28-32); MEAN CORPUSCULAR HGB CONC 36.4 g/dL (31-35); MEAN CORPUSCULAR VOLUME 96.9 fL (81-99); MONOCYTES # (AUTO) 0.5 (0.2-0.8); MONOCYTES % 10.2 % (4.4-11.3); NEUTROPHILS # (AUTO) 2.9 (2.1-6.9); NEUTROPHILS % 58.3 % (38.7-80.0); PLATELET COUNT 54 x10e3/uL (140-360); RED BLOOD COUNT 2.55 x10e6/uL (4.3-5.7)
[2018-03-24] MEDS: SUCRALFATE 1 GM TAB PO SCH ×4 (07:30→21:00)
[2018-03-24] MEDS ORDERED: POTASSIUM CHLORIDE 10MEQ EA PO ONE (08:45)
[2018-03-24] MEDS: TRAMADOL HCL 50 MG TAB PO PRN (09:00)
[2018-03-24] MEDS: NIFEDIPINE CR 30 MG TAB PO SCH (09:00)
[2018-03-24] MEDS: PROPRANOLOL HCL 10 MG TAB PO SCH ×2 (09:00→17:00)
--- NOTE | 2018-03-24 11:50 | Diagnostic Imaging Report ---
EXAM: CT Chest, Abdomen and Pelvis WITH contrast INDICATION: Pain, GI bleed, cirrhosis COMPARISON: 03/03/2018 CT, no report available TECHNIQUE: Chest, Abdomen and Pelvis was scanned utilizing a multidetector helical scanner after administration of IV contrast. Coronal and sagittal reformations were obtained. Reformatted axial MIP images were obtained and reviewed. IV CONTRAST: 100 mL Isovue-370 COMPLICATIONS: None RADIATION DOSE: Total DLP: 1043 mGy*cm Estimated effective dose: (DLP x 0.015 x size factor) mSv CTDIvol has been reviewed. It is below the limits set by the Radiation Protocol Committee (RPC). Appropriate CT dose reduction techniques were utilized. FINDINGS: Chest: Lower Neck: No acute findings. Heart and Great Vessels: The aorta and main pulmonary artery measure 32 and 29 mm. respectively. Moderate coronary calcifications. Mild left atrial enlargement, moderate left ventricular and atrial enlargement. RV/LV ratio >1. Lymph Nodes: No suspicious adenopathy. Lungs: No pneumothorax, effusion, consolidation. Abdomen: Solid Organs: Nodular cirrhotic liver with varices. Tiny calculus mid left kidney. Remainder solid organs unremarkable. Upper GI Tract: Moderate hiatal hernia. No SBO changes. Vascularity: Mild vascular calcifications. No aneurysm. Lymph Nodes: No suspicious. Other: None. Pelvis: Bladder: Unremarkable. Other: Prostate 53mm. Colon: Colonic evaluation limited due to surrounding free fluid and lack of enteric contrast. No definite acute findings. Bones: Few tiny sclerotic foci pelvis. Degenerative changes spine. IMPRESSION: 1. Cirrhosis with portal hypertension. 2. Bowel evaluation limited as above. No definite acute findings. 3. Right heart elevated pressures/volume. Echocardiogram could be obtained as indicated. 4. Enlarged prostate. Clinical/laboratory correlation. Signed by: Dr. Steven Pemberton MD on 03/24/2018 11:46 AM
--- NOTE | 2018-03-24 11:50 | Diagnostic Imaging Report ---
EXAM: CT ABDOMEN/PELVIS W DATE: 03/24/2018 8:40 AM INDICATION: ^cp ^[id number] ^[id number] pain COMPARISON: None FINDINGS: See CT chest. IMPRESSION: As above. Signed by: Dr. Steven Pemberton MD on 03/24/2018 11:47 AM
[2018-03-24] MEDS: SPIRONOLACTONE 25 MG TAB PO SCH (12:15)
[2018-03-24] MEDS: PANTOPRAZOLE SOD 40 MG TABEC PO SCH ×2 (12:15→21:00)
[2018-03-24] MEDS: FUROSEMIDE 40 MG TAB PO SCH (12:15)
[2018-03-24] MEDS ORDERED: HYDROMORPHONE 2MG/ML 2 MG/ML ML IV PRN (13:45)
--- NOTE | 2018-03-24 13:50 | Consultation ---
DATE OF CONSULTATION: March 24, 2018 CARDIOLOGY CONSULTATION REFERRING PHYSICIAN: Diallo Goode MD REASON FOR CONSULTATION: Chest pain. HISTORY OF PRESENT ILLNESS: Mr. Cuba is a 73-year-old man with morbid obesity, end-stage liver disease, hypertension and hypothyroidism, who presents with melena, undergoing evaluation by gastroenterology. He is also noted to have anemia, thrombocytopenia and coagulopathy for which he is receiving transfusions of PRBCs, platelets as well as FFP and receiving vitamin K followed by EGD. Overnight, he developed some back discomfort and upper abdominal/epigastric/lower chest area discomfort. This is improved. It is described as intermittent, cramp-like, unaffected by inspiration. He is currently in bed, not ambulating. Unclear relation to exertion. Symptoms have resolved. REVIEW OF SYSTEMS: Twelve systems reviewed and negative except for as noted above. ALLERGIES: ALLERGY TO COLCHICINE REPORTED. PAST MEDICAL HISTORY: Hypertension, ESLD, hypothyroidism. SOCIAL HISTORY: Former alcohol use into his 40s. No recent alcohol use. No smoking. No drugs. FAMILY HISTORY: Noncontributory. PHYSICAL EXAMINATION VITALS: Temperature is 97.3, heart rate 66, respiratory rate 18, blood pressure 106/52, O2 sat 100%. BMI 32.4. GENERAL: No acute distress. Alert. NECK: No JVD. CHEST: Clear to auscultation. CARDIOVASCULAR: Regular rate and rhythm, normal S1 and S2. No S3. No S4. No murmurs or rubs. ABDOMEN: Distended. Minimal tenderness. No rebound. No guarding. Bowel sounds positive. EXTREMITIES: Trace edema bilaterally. CARDIOVASCULAR MEDICATIONS: Reviewed. 1. Furosemide 40 mg daily. 2. Nifedipine 30 mg daily. 3. Propranolol 20 mg b.i.d. 4. Spironolactone 50 mg daily. 5. Furosemide 20 mg post transfusion additional p.r.n. dose. 6. Tramadol. 7. Protonix. 8. Sucralfate. 9. Levothyroxine. STUDIES: Reviewed. Sodium 134, potassium 3.4, chloride 109, bicarbonate 19, BUN 14, creatinine 0.75, glucose 109. White blood cells 4.8, hemoglobin 9, platelets 54. INR 1.5. AST 43, ALT 29. ASSESSMENT 1. Melena/gastrointestinal bleed. 2. Pancytopenia. 3. Coagulopathy. 4. End-stage liver disease. 5. Chest pain/epigastric discomfort. RECOMMENDATIONS 1. Chest pain is atypical for CAD; however, suggest maintaining hemoglobin over 7. Patient is already on beta iman, please continue. 2. Obtain EKG. None currently available in the chart. 3. Obtain echocardiogram. 4. Trend cardiac enzymes. Thank you for the opportunity to participate in the care of Mr. Cuba. Job#: [id number]
[2018-03-24] MEDS: ONDANSETRON HCL INJ 2 MG/ML VIAL IV PRN (15:26)
[2018-03-24] MEDS ORDERED: IOPAMIDOL 370 MG/ML 200 ML INFUS..BTL INJ ONE (18:45)
[2018-03-24] MEDS ORDERED: SODIUM CHLORIDE 0.9% 50ML 50 ML ONE (18:45)
[2018-03-25] VITALS (7 sets, daily range): BP systolic 99–111; BP diastolic 51–58
[2018-03-25] MEDS: LEVOTHYROXINE SODIUM 75 MCG TAB PO SCH (05:25)
[2018-03-25 06:12] LABS: BASOPHILS % 0.1 % (0.0-1.0); EOSINOPHILS % 0.1 % (0.0-6.0); HEMATOCRIT 27.5 % (38.2-49.6); HEMOGLOBIN 10.1 g/dL (14.0-18.0); LYMPHOCYTES % 7.3 % (18.0-39.1); MEAN CORPUSCULAR HEMOGLOBIN 36.3 pg (28-32); MEAN CORPUSCULAR HGB CONC 36.7 g/dL (31-35); MEAN CORPUSCULAR VOLUME 98.9 fL (81-99); MONOCYTES # (AUTO) 1.1 (0.2-0.8); NEUTROPHILS # (AUTO) 11.5 (2.1-6.9); NEUTROPHILS % 83.8 % (38.7-80.0); PLATELET COUNT 73 x10e3/uL (140-360); RED BLOOD COUNT 2.78 x10e6/uL (4.3-5.7); RED CELL DISTRIBUTION WIDTH 16.1 % (11.7-14.4)
[2018-03-25 06:33] LABS: ANION GAP 13.6 mmol/L (8-16); CALCIUM 8.5 mg/dL (8.4-10.2); CREATININE, SERUM 1.25 mg/dL (0.72-1.25); POTASSIUM 4.6 mmol/L (3.5-5.1)
[2018-03-25] MEDS: SPIRONOLACTONE 25 MG TAB PO SCH (08:35)
[2018-03-25] MEDS: PROPRANOLOL HCL 10 MG TAB PO SCH ×2 (08:35→15:43)
[2018-03-25] MEDS: FUROSEMIDE 40 MG TAB PO SCH (08:35)
[2018-03-25] MEDS: PANTOPRAZOLE SOD 40 MG TABEC PO SCH ×2 (08:35→21:18)
[2018-03-25] MEDS: SUCRALFATE 1 GM TAB PO SCH ×4 (08:35→21:18)
[2018-03-25] MEDS: NIFEDIPINE CR 30 MG TAB PO SCH (08:35)
--- NOTE | 2018-03-25 18:36 | Progress Note ---
DATE: March 25, 2018 CARDIOLOGY PROGRESS NOTE SUBJECTIVE: No chest pain. Epigastric discomfort improving. Status post esophageal banding. OBJECTIVE VITAL SIGNS: Temperature 97.6, heart rate 61, blood pressure 101/52, respiratory rate 20, O2 sat 98% on room air. GENERAL: In no acute distress, alert. NECK: No JVD. CHEST: Clear to auscultation. CARDIOVASCULAR: Regular rate and rhythm. Normal S1 and S2. No S3 or S4. ABDOMEN: Soft, distended. EXTREMITIES: Trace edema. CARDIOVASCULAR MEDICATIONS: Reviewed. 1. Propranolol 10 mg b.i.d. 2. Protonix 40 mg every 12 hours. 3. Furosemide 40 mg daily. 4. Spironolactone 50 mg daily. 5. Nifedipine 30 mg daily. 6. Sucralfate. 7. Levothyroxine. 8. Zofran. STUDIES: Reviewed. Significant creatinine 1.25. Hemoglobin 10.1, white blood cells 13.6, platelets 73,000, normal. AST of 43 and ALT of 29. ASSESSMENT 1. Esophageal variceal bleed, status post banding. 2. Upper gastrointestinal bleed. 3. End-stage liver disease. 4. Hypertension. 5. Hypothyroidism. 6. Morbid obesity. 7. Atypical chest pain. RECOMMENDATIONS: Preserved left ventricular systolic function with LVH noted on echocardiogram. Aortic valve thickening noted. Will need outpatient followup. At this point in time, given active and recent bleed, no additional coronary assessment is advised with continued medical therapy including beta-iman. Job#: [id number] JUAN
[2018-03-26] VITALS (9 sets, daily range): BP systolic 96–110; BP diastolic 50–56
[2018-03-26] MEDS: LEVOTHYROXINE SODIUM 75 MCG TAB PO SCH (05:51)
[2018-03-26 06:32] LABS: CREATINE KINASE 85 IU/L (30-200)
[2018-03-26] MEDS: FUROSEMIDE 40 MG TAB PO SCH (08:32)
[2018-03-26] MEDS: PANTOPRAZOLE SOD 40 MG TABEC PO SCH ×2 (08:32→21:08)
[2018-03-26] MEDS: SUCRALFATE 1 GM TAB PO SCH ×4 (08:32→21:08)
[2018-03-26] MEDS: SPIRONOLACTONE 25 MG TAB PO SCH (08:32)
[2018-03-26] MEDS ORDERED: LACTULOSE SYRUP 20 GM/30 ML UDC PO PRN (09:30)
[2018-03-26] MEDS ORDERED: LACTULOSE SYRUP 20 GM/30 ML UDC PO ONE (10:00)
[2018-03-26] MEDS: PROPRANOLOL HCL 10 MG TAB PO SCH ×2 (12:00→17:35)
[2018-03-26] MEDS: CLINDAMYCIN HCL 150 MG CAP PO SCH ×3 (12:00→23:33)
[2018-03-26] MEDS: NIFEDIPINE CR 30 MG TAB PO SCH (12:00)
--- NOTE | 2018-03-26 13:21 | Progress Note ---
DATE: March 26, 2018 CARDIOLOGY PROGRESS NOTE SUBJECTIVE: No complaints today. OBJECTIVE VITAL SIGNS: Temperature 97.3, heart rate 74, blood pressure 102/52, respiratory rate 18, O2 sat 98%. GENERAL: In no acute distress. Alert. NECK: No JVD. CHEST: Clear to auscultation. CARDIOVASCULAR: Regular rate and rhythm. Normal S1 and S2. No S3, no S4. ABDOMEN: Soft, distended, ascites. EXTREMITIES: Edema 1+. CARDIOVASCULAR MEDICATIONS: Reviewed. 1. Propranolol 10 mg b.i.d. 2. Protonix 40 mg every 12 hours. 3. Spironolactone 50 mg daily. 4. 20 mg b.i.d. 5. Sucralfate 1 g nightly. 6. Tramadol 50 mg every 6 hours. 7. Nifedipine 30 mg daily. 8. Furosemide 40 mg daily. STUDIES: Reviewed. Creatinine 1.25. Hemoglobin 10.1. INR 1.5 normal. AST 43, ALT 29. ASSESSMENT 1. Esophageal bleed status post banding. 2. Ascites and end-stage liver disease. 3. Hypothyroidism. 4. Hypertension. 5. Atypical chest pain. 6. Anemia. RECOMMENDATIONS: Ruled out with cardiac enzymes for acute myocardial infarction. Chest pain is atypical and I suspect more likely related to his GI issues, at this point symptom-free. Advised holding parameters for blood pressure medications, otherwise no additional cardiac workup at this point. Job#: [id number] EV
[2018-03-27] VITALS (8 sets, daily range): BP systolic 78–101; BP diastolic 46–54
[2018-03-27] MEDS: LEVOTHYROXINE SODIUM 75 MCG TAB PO SCH (05:08)
[2018-03-27] MEDS: CLINDAMYCIN HCL 150 MG CAP PO SCH ×4 (05:08→23:37)
[2018-03-27] MEDS: PANTOPRAZOLE SOD 40 MG TABEC PO SCH ×2 (09:00→20:39)
[2018-03-27] MEDS: SUCRALFATE 1 GM TAB PO SCH ×4 (09:00→20:39)
--- NOTE | 2018-03-27 12:52 | Progress Note ---
DATE: March 27, 2018 CARDIOLOGY PROGRESS NOTE SUBJECTIVE: No new complaints. OBJECTIVE VITAL SIGNS: Temperature 97.1, heart rate 68, respiratory rate 14, blood pressure 88/49, and O2 sat 100% on room air. GENERAL: In no acute distress. Alert. NECK: No JVD. CHEST: Clear to auscultation. CARDIOVASCULAR: Regular rate and rhythm. Normal S1 and S2. No S3 or S4. ABDOMEN: Distended. No rebound or guarding. EXTREMITIES: Trace edema. CARDIOVASCULAR MEDICATIONS: Reviewed. 1. Propranolol. 2. Nifedipine. 3. Spironolactone. 4. Furosemide, have all been put on hold given hypotension today. 5. Protonix. 6. Sucralfate. 7. Clindamycin. 8. Levothyroxine. 9. Zofran. 10. Tramadol. 11. Lactulose. STUDIES: Reviewed. White blood was 13.6, hemoglobin 10, platelets 73, that is from March 25, 2018. None for today otherwise. ASSESSMENT 1. Hypotension. 2. Esophageal bleeding status post banding. 3. Ascites and end-stage liver disease. 4. Hypothyroidism. 5. Hypertension. 6. Atypical chest pain, resolved. 7. Anemia. RECOMMENDATIONS 1. Hold antihypertensives. 2. Continue close monitoring for any days of recurrent bleeding. Job#: [id number] IMELDA
[2018-03-27] MEDS: TRAMADOL HCL 50 MG TAB PO PRN (16:44)
[2018-03-28] VITALS (8 sets, daily range): BP systolic 80–105; BP diastolic 42–52
[2018-03-28] MEDS: LEVOTHYROXINE SODIUM 75 MCG TAB PO SCH (06:27)
[2018-03-28] MEDS: CLINDAMYCIN HCL 150 MG CAP PO SCH ×4 (06:27→23:59)
[2018-03-28] MEDS ORDERED: FUROSEMIDE 40 MG TAB ONE (08:35)
[2018-03-28] MEDS: PANTOPRAZOLE SOD 40 MG TABEC PO SCH ×2 (08:45→21:05)
[2018-03-28] MEDS: SUCRALFATE 1 GM TAB PO SCH ×4 (08:45→21:05)
--- NOTE | 2018-03-28 09:32 | Progress Note ---
DATE: March 28, 2018 CARDIOLOGY PROGRESS NOTE SUBJECTIVE: No complaints. OBJECTIVE VITAL SIGNS: Temperature 96.5, heart rate 58, respiratory rate 21, blood pressure 92/52, and O2 sat 97% on room air. GENERAL: In no acute distress, alert. NECK: No JVD. CHEST: Clear to auscultation. CARDIOVASCULAR: Regular rate and rhythm. Normal S1 and S2. ABDOMEN: Distended. Ascites. EXTREMITIES: With 1+ edema in bilateral lower extremities. CARDIOVASCULAR MEDICATIONS: Reviewed. Resuming furosemide today LABORATORY STUDIES: White blood cell is 13.6, hemoglobin 10.1, and platelets 73. INR 1.5, creatinine 1.25, BUN 23, sodium 129, potassium 4.6. Studies are the most recent mainly from March 25, 2018. No recent lab work today. ASSESSMENT 1. Status post hypotension. 2. Esophageal bleeding status post banding. 3. Ascites and of end-stage liver disease. 4. Hypothyroidism. 5. History of hypertension. 6. Atypical chest pain, resolved. 7. Anemia. RECOMMENDATIONS 1. Antihypertensives on hold. 2. Resume Lasix if okay with physicians and monitor electrolytes closely. 3. Monitor for recurrent bleeding. Job#: [id number] IMELDA
[2018-03-28] MEDS: MIDODRINE 2.5 MG TAB PO SCH ×3 (09:45→17:00)
[2018-03-28] MEDS: FUROSEMIDE 40 MG TAB PO SCH (09:47)
[2018-03-28] MEDS: TRAMADOL HCL 50 MG TAB PO PRN (15:35)
[2018-03-28 19:10] LABS: COLOR,URINE AMBER (YELLOW)
[2018-03-28 19:11] LABS: CLARITY,URINE SL CLOUDY (CLEAR); KETONES,URINE 1+ (NEGATIVE); LEUKOCYTE ESTERASE ,URINE TRACE (NEGATIVE); NITRITE,URINE POSITIVE (NEGATIVE); PROTEIN,URINE DIPSTICK 1+ (NEGATIVE)
[2018-03-28 19:12] LABS: BILIRUBIN,URINE 3+ (NEGATIVE); URINE UROBILINOGEN 0.2 mg/dL (0.2 - 1)
[2018-03-28 19:14] LABS: AMORPHOUS SEDIMENT,URINE MODERATE (FEW); BACTERIA,URINE FEW /HPF; EPITHELIAL CELLS,URINE FEW /LPF; RBC,URINE 21-50 /HPF (0-5)
[2018-03-29] VITALS (73 sets, daily range): BP systolic 78–125; BP diastolic 38–62
[2018-03-29] MEDS: ONDANSETRON HCL INJ 2 MG/ML VIAL IV PRN (00:12)
[2018-03-29] MEDS: LEVOTHYROXINE SODIUM 75 MCG TAB PO SCH (05:35)
[2018-03-29] MEDS: CLINDAMYCIN HCL 150 MG CAP PO SCH (05:35)
[2018-03-29 05:58] LABS: BASOPHILS # (AUTO) 0.2 (0.0-0.1); BASOPHILS % 0.9 % (0.0-1.0); EOSINOPHILS # (AUTO) 0.4 (0.0-0.4); EOSINOPHILS % 2.2 % (0.0-6.0); HEMATOCRIT 26.4 % (38.2-49.6); HEMOGLOBIN 9.8 g/dL (14.0-18.0); LYMPHOCYTES # (AUTO) 2.3 (1.0-3.2); LYMPHOCYTES % 13.3 % (18.0-39.1); MEAN CORPUSCULAR HEMOGLOBIN 35.6 pg (28-32); MEAN CORPUSCULAR HGB CONC 37.1 g/dL (31-35); MONOCYTES # (AUTO) 1.7 (0.2-0.8); MONOCYTES % 9.9 % (4.4-11.3); NEUTROPHILS % 62.8 % (38.7-80.0); PLATELET COUNT 112 x10e3/uL (140-360); RED BLOOD COUNT 2.75 x10e6/uL (4.3-5.7); RED CELL DISTRIBUTION WIDTH 16.9 % (11.7-14.4)
[2018-03-29 06:21] LABS: ANION GAP 15.9 mmol/L (8-16); CALCIUM 7.9 mg/dL (8.4-10.2); CREATININE, SERUM 5.8 mg/dL (0.72-1.25); POTASSIUM 4.9 mmol/L (3.5-5.1)
[2018-03-29] MEDS ORDERED: SODIUM CHLORIDE 0.9% 1000ML 1,000 ML ONE (06:32)
[2018-03-29] MEDS ORDERED: MEROPENEM 500MG 500 MG in SODIUM CHLORIDE 0.9% 50ML 50 ML IV SCH (06:45)
[2018-03-29] MEDS ORDERED: DIATRIZOATE MEGL/DIATRIZOA SOD 30 ML BTL PO ONE (06:54)
[2018-03-29 07:16] LABS: BAND NEUTROPHILS % (MANUAL) 6 %; EOSINOPHILS % (MANUAL) 5 % (0-7); LYMPHOCYTES % (MANUAL) 14 % (19-48); MONOCYTES % (MANUAL) 19 % (3.4-9.0); NEUTROPHILS % (MANUAL) 54 % (40-74)
[2018-03-29 07:17] LABS: ANISOCYTOSIS SLIGHT; PLATELET ESTIMATE SLIGHTLY DECREASED; PLATELET MORPHOLOGY COMMENT NORMAL; RBC MORPHOLOGY COMMENT NORMAL
[2018-03-29] MEDS ORDERED: LACTULOSE SYRUP 20 GM/30 ML UDC ONE (07:17)
[2018-03-29] MEDS ORDERED: SODIUM CHLORIDE 3% 500 ML ONE (07:21)
[2018-03-29] MEDS ORDERED: DEXTROSE 50% SYRINGE 50 ML IV ONE (07:25)
[2018-03-29] MEDS ORDERED: SODIUM CHLORIDE 3% 500 ML IV ONE (07:30)
[2018-03-29] MEDS ORDERED: SODIUM CHLORIDE 0.9% 1000ML 1,000 ML IV SCH (07:30)
[2018-03-29] MEDS ORDERED: CALCIUM GLUCONATE 10% INJ 9.3 MEQ in SODIUM CHLORIDE 0.9% 100 ML 100 ML IV ONE (07:30)
[2018-03-29] MEDS ORDERED: LACTULOSE SYRUP 20 GM/30 ML UDC PO ONE (07:30)
[2018-03-29] MEDS ORDERED: VANCOMYCIN 1GM/NS 250 ML 250 ML IV SCH ×2 (08:00→09:00)
[2018-03-29] MEDS ORDERED: ALBUMIN 5% 0.05 GM/ML BTL IV ONE ×2 (08:00→08:15)
[2018-03-29] MEDS: FUROSEMIDE 40 MG TAB PO SCH (08:13)
[2018-03-29] MEDS ORDERED: DEXTROSE 5%/0.9% SOD CHL 1,000 ML IV SCH (08:30)
[2018-03-29 08:48] LABS: MAGNESIUM 1.2 MG/DL (1.3-2.1); PHOSPHORUS 4.9 MG/DL (2.3-4.7)
[2018-03-29] MEDS ORDERED: PHYTONADIONE 10 MG/ML AMP SQ ONE (09:00)
[2018-03-29] MEDS: PANTOPRAZOLE SOD 40 MG TABEC PO SCH ×2 (09:00→21:02)
[2018-03-29] MEDS: MIDODRINE 2.5 MG TAB PO SCH ×3 (09:16→16:41)
--- NOTE | 2018-03-29 09:36 | Diagnostic Imaging Report ---
PROCEDURE: CT ABDOMEN AND PELVIS WITHOUT CONTRAST TECHNIQUE: The abdomen and pelvis were scanned utilizing a multidetector helical scanner from the diaphragm to the lesser trochanter without IV or oral contrast material. Coronal and sagittal multiplanar reformations were obtained. Low-dose technique was utilized. DLP: 791.92 mGy-cm COMPARISON: 03/24/2018 CT of the chest, abdomen and pelvis INDICATIONS: Sepsis FINDINGS: ABSENCE OF INTRAVENOUS CONTRAST DECREASES SENSITIVITY FOR DETECTION OF FOCAL LESIONS AND VASCULAR PATHOLOGY. LOWER THORAX: Left pleural calcification and a tiny effusion. HEPATOBILIARY: Small nodular appearing liver. Gallbladder is enlarged but unchanged in size and likely related to hypoproteinemia. SPLEEN: No splenomegaly. PANCREAS: No focal masses or ductal dilatation. ADRENALS: No adrenal nodules. KIDNEYS/URETERS: No hydronephrosis or solid mass lesions. Tiny right renal stone. PELVIC ORGANS/BLADDER: Calvert catheter within the bladder. PERITONEUM / RETROPERITONEUM: Large volume abdominal and pelvic ascites unchanged. LYMPH NODES: No lymphadenopathy. VESSELS: Unremarkable. GI TRACT: No distention or wall thickening. The appendix is normal. BONES AND SOFT TISSUES: Degenerative changes of the spine. IMPRESSION: 1. Large volume pelvic and abdominal ascites appears unchanged. 2. Small nodular cirrhotic appearing liver. The right lung 3. No evidence of an intra-abdominal or pelvic abscess. Asa Barragan D.O. Dictated by: Asa Barragan D.O. on 03/29/2018 at 9:46 Electronically approved by: Asa Barragan D.O. on 03/29/2018 at 9:46
[2018-03-29 09:41] LABS: CREATININE,URINE RANDOM 60.05 mg/dL (63-166)
--- NOTE | 2018-03-29 10:27 | Progress Note ---
DATE: March 29, 2018 CARDIOLOGY PROGRESS NOTE SUBJECTIVE: Worsening confusion. Transferred to ICU. Transient hypotension. Patient was treated per sepsis protocol and given normal saline. OBJECTIVE VITAL SIGNS: Temperature 96.9, heart rate 60, blood pressure 105/50, respiratory rate 16, O2 sat 99%. GENERAL: Confused, awake. NECK: JVD elevated. CHEST: Decreased breath sounds in bilateral bases. CARDIOVASCULAR: Regular rate and rhythm. Normal S1 and S2. ABDOMEN: Distended. No rebound or guarding. EXTREMITIES: 1+ edema, jaundiced. CARDIOVASCULAR MEDICATIONS: Reviewed. Meropenem and vancomycin antibiotic. Levothyroxine, lactulose, midodrine, pantoprazole, Zofran. STUDIES: Reviewed. Sodium 108, potassium 4.9, chloride 84, bicarbonate 13, BUN 73, creatinine 5.8, glucose 59. White blood cells 17.4, hemoglobin 9.8, platelets 112. INR 1.5. AST 43, ALT 29. ASSESSMENT 1. Hypotension/shock. 2. Hyponatremia. 3. Acute renal failure. 4. Metabolic acidosis. 5. Anemia. 6. End-stage liver disease. 7. Hypothyroidism. 8. Esophageal bleeding. 9. Morbid obesity. RECOMMENDATIONS 1. Fluid restrict to 1 liter per day. 2. Renal consulted. Patient possibly to undergo dialysis. 3. Overall guarded prognosis. Keep in ICU. 4. Monitor H and H. 5. Avoid any antihypertensives at this point. Blood pressure seems to have somewhat improved after initial fluid resuscitation. Patient is scheduled for additional albumin per nephrology. 6. Guarded prognosis. Job#: [id number]
--- NOTE | 2018-03-29 10:52 | Diagnostic Imaging Report ---
PROCEDURE: A single AP view of the chest. COMPARISON: None. INDICATIONS: LINE PLACEMENT FINDINGS: Lines/tubes: Non-tunneled right IJ temporary hemodialysis catheter noted with the tip overlying the right atrium. Lungs: There is mild pulmonary vascular congestion. Bibasilar atelectasis. Pleura: There is no pleural effusion or pneumothorax. Heart and mediastinum: The heart and the mediastinum are unremarkable. Bones: No acute bony abnormality. IMPRESSION: 1. Right non-tunneled temporary hemodialysis catheter in appropriate position. 2. Mild pulmonary vascular congestion. Asa Barragan D.O. Dictated by: Asa Barragan D.O. on 03/29/2018 at 11:02 Electronically approved by: Asa Barragan D.O. on 03/29/2018 at 11:02
[2018-03-29 10:59] LABS: BASOPHILS # (AUTO) 0.1 (0.0-0.1); BASOPHILS % 0.5 % (0.0-1.0); EOSINOPHILS # (AUTO) 0.3 (0.0-0.4); EOSINOPHILS % 1.6 % (0.0-6.0); HEMATOCRIT 25.2 % (38.2-49.6); HEMOGLOBIN 9.4 g/dL (14.0-18.0); LYMPHOCYTES # (AUTO) 1.7 (1.0-3.2); LYMPHOCYTES % 10.2 % (18.0-39.1); MEAN CORPUSCULAR HEMOGLOBIN 36.2 pg (28-32); MEAN CORPUSCULAR HGB CONC 37.3 g/dL (31-35); MEAN CORPUSCULAR VOLUME 96.9 fL (81-99); MONOCYTES # (AUTO) 1.6 (0.2-0.8); MONOCYTES % 9.3 % (4.4-11.3); NEUTROPHILS # (AUTO) 11.1 (2.1-6.9); PLATELET COUNT 93 x10e3/uL (140-360); RED CELL DISTRIBUTION WIDTH 16.7 % (11.7-14.4)
[2018-03-29 11:12] LABS: ALBUMIN/GLOBULIN RATIO 0.7 (0.8-2.0); ANION GAP 14.6 mmol/L (8-16); CALCIUM 7.9 mg/dL (8.4-10.2); CREATININE, SERUM 5.63 mg/dL (0.72-1.25); PHOSPHORUS 4.5 MG/DL (2.3-4.7); POTASSIUM 4.6 mmol/L (3.5-5.1)
[2018-03-29 11:20] LABS: MAGNESIUM 1.1 MG/DL (1.3-2.1)
[2018-03-29] MEDS ORDERED: SODIUM CHLORIDE 0.9% 1000ML 2,000 ML ONE (11:26)
[2018-03-29] MEDS ORDERED: MANNITOL 25% 12.5GM/50ML 100 ML ONE (11:27)
--- NOTE | 2018-03-29 11:32 | Diagnostic Imaging Report ---
This report includes an Addendum and supersedes previous reports for this exam. PROCEDURE:US GUIDANCE FOR VASCULAR ACCESS COMPARISON:None. INDICATIONS:RT IJV HD TRIALYSIS FINDINGS:Ultrasound evaluation of the right internal jugular vein was performed revealing the vein to be patent. After sterile preparation and local anesthesia with 1% Xylocaine, US was used for guidance to puncture the right internal jugular vein with a 21 gauge skinny needle. A 0.018 inch wire was then advanced through the needle followed by a micropuncture sheath. Through the micropuncture sheath a 0.035 inch Amplatz Super Stiff wire was advanced. Serial dilatation was accomplished with Moe dilators. A 13 Green[place]ic 15 cm long non-tunneled Bard Trialysis catheter was then placed and secured to the skin. A post procedure chest x-ray was ordered. CONCLUSION:Successful temporary right IJ hemodialysis catheter placement with ultrasound guidance at the bedside. Asa Barragan D.O. Dictated by: Asa Barragan D.O. on 03/29/2018 at 11:42 Electronically approved by: Asa Barragan D.O. on 03/29/2018 at 11:42 ADDENDUM: The right internal jugular vein is patent. A permanent record was obtained for the medical record. Asa Barragan D.O. Dictated by: Asa Barragan D.O. on 04/05/2018 at 8:10 Electronically approved by: Asa Barragan D.O. on 04/05/2018 at 8:10
[2018-03-29] MEDS ORDERED: MANNITOL 25% 12.5GM/50ML 50 ML ONE (12:00)
[2018-03-29] MEDS ORDERED: ALBUMIN 25% 12.5GM 0.25 GM/ML BTL IV PRN (12:15)
[2018-03-29] MEDS ORDERED: MANNITOL 25% 12.5GM/50 ML VIAL IV PRN (12:15)
[2018-03-29] MEDS ORDERED: SODIUM CHLORIDE 0.9% 1000ML 2,000 ML IV PRN (12:15)
[2018-03-29] MEDS ORDERED: SODIUM CHLORIDE 0.9% 250ML 500 ML IV PRN (12:15)
[2018-03-29] MEDS ORDERED: NOREPINEPHRINE 8 MG/D5W 250 ML 250 ML ONE (12:50)
[2018-03-29] MEDS: SODIUM BICARBONATE 8.4% 100 ML in DEXTROSE 5% 1,000 ML IV SCH (12:57)
[2018-03-29] MEDS: NOREPINEPHRINE INJ 4MG/4ML 8 MG in DEXTROSE 5% 250ML 250 ML IV PRN (13:16)
[2018-03-29] MEDS ORDERED: MEROPENEM 1GRAM 1 GM in SODIUM CHLORIDE 0.9% 100 ML 100 ML IV SCH (14:00)
[2018-03-29] MEDS ORDERED: MEROPENEM 1 GM VIAL ONE (14:52)
[2018-03-29] MEDS ORDERED: SODIUM CHLORIDE 0.9% 100 ML ONE (14:53)
--- NOTE | 2018-03-29 15:40 | Consultation ---
DATE OF CONSULTATION: HISTORY OF PRESENT ILLNESS: This patient who is a 73-year-old [place] male who was diagnosed in [place] with liver cirrhosis from medication. He has liver cirrhosis, esophageal varices. He presented to the hospital on March 21, 2018, with bleeding from one of his esophageal varices. Patient came to the emergency room. He had tarry stools. His hemoglobin was 7.8, so he was admitted. The patient has been in the hospital since then but today he was transferred in intensive care unit. He is hypotensive, hypothermic. Infectious disease was consulted. The patient currently alert and oriented, family at the bedside. The patient developed acute renal failure, hyponatremia, hypertension, metabolic acidosis, esophageal bleeding. His blood cultures are still pending. LABORATORY DATA: His white count was 3.8, did come up to 17.475, hemoglobin 9.8. Sodium 109, potassium 4.6, creatinine 5.63. PHYSICAL EXAMINATION GENERAL: Is currently alert, confused. Does not seem to be in acute distress. Is hypothermic and on vasopressors. HEENT: He does not appear icteric. NECK: Supple. CHEST: Clear. COR: S1, S2. No murmur. ABDOMEN: Soft. Bowel sounds present. No tenderness. EXTREMITIES: No edema. IMPRESSION: Sepsis, etiology unclear. He received 1 dose of vancomycin. Will check a level in 2 days. He is on meropenem but will adjust it to 500 daily. Patient also complaining of back pain. Will get magnetic resonance imaging of the spine, but we cannot do contrast unfortunately. Await blood cultures. Continue with supportive care. Will follow. Job#: [id number] URIAH
[2018-03-29] MEDS ORDERED: MAGNESIUM SULFATE 2GM/50ML 50 ML IV ONE (16:15)
--- NOTE | 2018-03-29 16:37 | Consultation ---
DATE OF CONSULTATION: March 30, 2018 REASON FOR CONSULTATION: Life-threatening kidney failure. HISTORY OF PRESENT ILLNESS: A 73-year-old gentleman underlying history of end-stage liver disease, esophageal varices with underlying probable sepsis, followed by multiple physicians. He presented with GI bleed, developed acute kidney failure with hyponatremia, severe metabolic acidosis, and ATN. Renal consulted for management of kidney failure. Patient is surprisingly awake, following commands, deeply icteric sclerae. No apparent respiratory distress. Blood pressure is low. We started on Levophed. I have already asked them to put a temporary dialysis catheter because his initial labs showed a sodium 108, potassium 4.9, bicarbonate 13, with a BUN 73, creatinine 5.8. Blood glucose was 59, but was corrected. Magnesium was found to be 1.2. His creatinine was 1.25 on the 6th. He is currently being treated for sepsis and shock. Urine blood cultures pending. ALLERGIES: COLCHICINE. He has underlying history of hypertension, end-stage liver disease, and hypothyroidism with history of portal hypertension, esophageal varices, prior GI bleed. He has got pancytopenia. He also had developed chest pain. Cardiology is on the case. CURRENT MEDICATIONS 1. He was on spironolactone and Carafate, which has been stopped. 2. He is on tramadol p.r.n. 3. Ondansetron p.r.n. 4. Midodrine 5 mg p.o. t.i.d. 5. Levothyroxine 35 mcg p.o. daily. 6. He also received furosemide 40 mg daily, which has been stopped. 7. Vancomycin dose has been adjusted. 8. Currently on Levophed because of drop in blood pressure. 9. Was on D5 NS, which I have asked the nurse to stop while coming here to the hospital. I told them to start D5 water with 2 amps of sodium bicarbonate at 70 mL an hour. SOCIAL HISTORY: Does not smoke or drink. Prior history of alcohol and tobacco addiction. FAMILY HISTORY: Significant for hypertension. EXAM GENERAL: Awake, alert, deeply icteric. No apparent respiratory distress. Appears quite ill. VITALS: Blood pressure 85 systolic. Pulse rate 99. Afebrile. Respiratory rate 25. HEAD AND NECK: As above. Oral mucosa moist. Neck veins not distended. LUNGS: Harsh vesicular breath sounds relatively clear. No rales or rhonchi. HEART: A 3/6 ejection systolic murmur at the left sternal border. ABDOMEN: Otherwise distended. Soft flanks. Full. No apparent visceromegaly. Nontender exam. LOWER EXTREMITIES: 1+ edema. IMPRESSIONS 1. Severe metabolic acidosis. 2. Acute tubular necrosis. 3. Severe hyponatremia. 4. Patient relatively awake, alert, and following commands. 5. Hyperkalemic and sepsis and shock. Plan on dialysis for his degree of acidosis and multiorgan failure. Etiology of ATN, he probably has hepatorenal syndrome and possibly ATN, it could be contrast-induced nephropathy. Discussed with family members. All questions answered. Overall critical state explained. Prognosis explained, very poor despite all the measures we are taking. I will attempt urgent hemodialysis. Monitor patient's sodium level serially. I have no choice but to dialyze because of severe septic state and severe metabolic acidosis, ATN, and oligo-anuric state. He has not made any urine. I have already given him volume challenges to improve his CBP. Will start relatively dilute bicarbonate and monitor patient's serum sodium level as we go along. Discussed with RN. Discussed with all the family members including , daughter, sons. Job#: [id number] JUAN
--- NOTE | 2018-03-29 17:47 | Consultation ---
DATE OF CONSULTATION: PULMONARY CRITICAL CARE CONSULTATION REASON FOR THE CONSULT: ICU management. CHIEF COMPLAINT: Hypotension. Patient was transferred to ICU. HPI: Mr. Cuba is a 73-year-old male who has end-stage liver disease, esophageal varices. He initially presented with GI bleed. Patient was seen by Dr. Cintron. He has liver cirrhosis secondary to medications according to the son who was at bedside. He is currently arousable but sleepy. He became hypotensive so patient was moved to ICU. Blood pressure went down to 89/45. He is currently on Levophed. He was also found to be in renal failure. Patient creatinine is 5.63 and the last one was checked on the 6th which was 1.25. He is altered and obtunded. REVIEW OF SYSTEMS: Unable to elicit detailed review of systems. He is denying any complaints of chest pain, nausea, vomiting, short of breath. PAST MEDICAL HISTORY: Cirrhosis of the liver, end-stage liver disease, hypothyroidism, history of hypertension, GI bleed, esophageal varices, coagulopathy secondary to liver disease. CT abdomen showed evidence of cirrhosis with portal hypertension and also right heart pressures were evaluated per the CT scan. FAMILY AND SOCIAL HISTORY: Does not smoke. Does not drink. PHYSICAL EXAMINATION VITALS: Temperature 97.4, pulse of 68, blood pressure 119/52, respiratory rate of 18 to 20. HEENT: Atraumatic, normocephalic. Jaundice. CHEST: Clear to auscultation bilaterally. HEART: S1, S2 audible. ABDOMEN: Distended, reduced air entry on the bases. EXTREMITIES: Pedal edema. NEUROLOGIC: He is arousable but sleepy. Following commands. Patient had a chest x-ray done, which is not showing any focal infiltrate. Patient underwent a Trialysis catheter placement by IR. CT chest was done 03/24 with contrast, not showing any focal infiltrates. ASSESSMENT: Mr. Cuba is a 73-year-old male who presented with gastrointestinal bleed, transferred to intensive care unit for hypotension, possibility of sepsis, and septic shock. Patient is currently on Levophed. Also was noted to have acute kidney injury with severe metabolic acidosis. IMPRESSIONS 1. End-stage liver disease and cirrhosis. 2. Agree with acute kidney injury, acute tubular necrosis, however possibility of cardiorenal syndrome versus contrast-induced nephropathy. 3. Source of infection could be spontaneous bacterial peritonitis. 4. Hypotension, could be multifactorial, sepsis versus end-stage liver disease. PLANS 1. Agree with patient is in ICU. Supportive care will be continued. 2. IV antibiotics per infectious disease recommendations. 3. Continue the Levophed. 4. Respiratory status is currently stable and does not require intubation at this point. 5. Hemodialysis and renal failure management per nephrology. Reviewed Dr. Pickett's note. Discussed with patient's sons at bedside in detail. Critical care time spent 50 minutes. Job#: [id number] URIAH
[2018-03-30] VITALS (71 sets, daily range): BP systolic 72–133; BP diastolic 37–85
[2018-03-30] MEDS: MEROPENEM 500MG/ NS 50ML 50 ML IV SCH ×2 (02:11→14:25)
[2018-03-30] MEDS: ONDANSETRON HCL INJ 2 MG/ML VIAL IV PRN ×2 (03:59→07:40)
[2018-03-30 04:20] LABS: BASOPHILS # (AUTO) 0.1 (0.0-0.1); BASOPHILS % 0.7 % (0.0-1.0); EOSINOPHILS # (AUTO) 0.2 (0.0-0.4); EOSINOPHILS % 1.5 % (0.0-6.0); HEMATOCRIT 24.5 % (38.2-49.6); HEMOGLOBIN 9.2 g/dL (14.0-18.0); LYMPHOCYTES # (AUTO) 1.4 (1.0-3.2); LYMPHOCYTES % 9.7 % (18.0-39.1); MEAN CORPUSCULAR HEMOGLOBIN 35.8 pg (28-32); MEAN CORPUSCULAR HGB CONC 37.6 g/dL (31-35); MEAN CORPUSCULAR VOLUME 95.3 fL (81-99); MONOCYTES # (AUTO) 1.9 (0.2-0.8); MONOCYTES % 13.6 % (4.4-11.3); NEUTROPHILS # (AUTO) 8.3 (2.1-6.9); NEUTROPHILS % 59.2 % (38.7-80.0); PLATELET COUNT 79 x10e3/uL (140-360); RED BLOOD COUNT 2.57 x10e6/uL (4.3-5.7); RED CELL DISTRIBUTION WIDTH 17.2 % (11.7-14.4)
[2018-03-30 04:38] LABS: ALBUMIN/GLOBULIN RATIO 0.7 (0.8-2.0); ANION GAP 16.8 mmol/L (8-16); CALCIUM 7.6 mg/dL (8.4-10.2); CREATININE, SERUM 4.87 mg/dL (0.72-1.25); POTASSIUM 3.8 mmol/L (3.5-5.1)
[2018-03-30 04:57] LABS: CLARITY,URINE CLOUDY (CLEAR); COLOR,URINE AMBER (YELLOW); KETONES,URINE TRACE (NEGATIVE); LEUKOCYTE ESTERASE ,URINE TRACE (NEGATIVE); NITRITE,URINE POSITIVE (NEGATIVE); PROTEIN,URINE DIPSTICK 1+ (NEGATIVE); URINE UROBILINOGEN 1 mg/dL (0.2 - 1)
[2018-03-30 04:58] LABS: BACTERIA,URINE MANY /HPF; BILIRUBIN,URINE 3+ (NEGATIVE); EPITHELIAL CELLS,URINE FEW /LPF; RBC,URINE 21-50 /HPF (0-5); TRANSITIONAL EPI CELLS,URINE MODERATE; WBC,URINE (MAN) 21-50 /HPF (0-5)
[2018-03-30] MEDS: SODIUM BICARBONATE 8.4% 100 ML in DEXTROSE 5% 1,000 ML IV SCH (05:13)
--- NOTE | 2018-03-30 06:28 | Diagnostic Imaging Report ---
EXAMINATION: CHEST SINGLE (PORTABLE) INDICATION: Sepsis. COMPARISON: Chest CT 03/24/2018 FINDINGS: AP view TUBES and LINES: Right IJ catheter tip overlies the cavoatrial junction. LUNGS: Lungs are well inflated. There is mild bibasilar atelectasis. There is no evidence of pneumonia or pulmonary edema. PLEURA: No pleural effusion or pneumothorax. HEART AND MEDIASTINUM: The cardiomediastinal silhouette is unremarkable. BONES AND SOFT TISSUES: No acute osseous lesion. Soft tissues are unremarkable. UPPER ABDOMEN: No free air under the diaphragm. IMPRESSION: No acute thoracic abnormality. Signed by: DR. Yung Miranda MD on 03/30/2018 6:25 AM
[2018-03-30] MEDS: LEVOTHYROXINE SODIUM 75 MCG TAB PO SCH (06:33)
[2018-03-30 07:11] LABS: BAND NEUTROPHILS % (MANUAL) 2 %; EOSINOPHILS % (MANUAL) 6 % (0-7); LYMPHOCYTES % (MANUAL) 15 % (19-48); MONOCYTES % (MANUAL) 15 % (3.4-9.0); NEUTROPHILS % (MANUAL) 62 % (40-74)
[2018-03-30 07:12] LABS: ANISOCYTOSIS MODERATE; PLATELET ESTIMATE MODERATELY DECREASED; PLATELET MORPHOLOGY COMMENT NORMAL; POIKILOCYTOSIS S; RBC MORPHOLOGY COMMENT ABNORMAL
[2018-03-30] MEDS: MIDODRINE 2.5 MG TAB PO SCH ×4 (08:00→16:00)
[2018-03-30] MEDS ORDERED: VANCOMYCIN 1GM/NS 250 ML 250 ML IV SCH (08:00)
[2018-03-30] MEDS: PANTOPRAZOLE SOD 40 MG TABEC PO SCH ×2 (08:25→09:00)
[2018-03-30] MEDS: PROMETHAZINE 12.5MG/ NACL 0.9% 12.5 MG/50 ML BAG IV PRN ×2 (09:13→14:25)
[2018-03-30] MEDS ORDERED: HEPARIN SOD (PORCINE) 1000 UNIT/ML SDV IV PRN (09:15)
[2018-03-30 10:02] LABS: INR 2.42; PROTHROMBIN TIME 28.1 seconds (11.9-14.5)
[2018-03-30] MEDS ORDERED: SODIUM BICARBONATE 8.4% 50 ML in DEXTROSE 5% 1,000 ML IV SCH ×2 (11:00→11:30)
[2018-03-30] MEDS ORDERED: MAGNESIUM SULFATE 2GM/50ML 50 ML IV ONE ×2 (11:00→11:30)
--- NOTE | 2018-03-30 13:13 | Progress Note ---
DATE: March 30, 2018 CARDIOLOGY PROGRESS NOTE SUBJECTIVE: Abdominal discomfort and nausea today, undergoing hemodialysis. OBJECTIVE VITAL SIGNS: Temperature 97 degrees, heart rate 61, blood pressure 108/48, O2 sat 96% on room air. GENERAL: Mild distress, jaundiced. NECK: No JVD. CHEST: Decreased breath sounds in bilateral bases. CARDIOVASCULAR: Regular rate and rhythm. Normal S1 and S2. Systolic ejection murmur. No S3. No S4. ABDOMEN: Distended with ascites. EXTREMITIES: 2+ edema. STUDIES: Reviewed. White blood cells 14, hemoglobin 9.2, platelets 79. Sodium 121, potassium 3.8, chloride 88, bicarbonate 20, BUN 53, creatinine 4.87, glucose 114. INR 2.42. ASSESSMENT 1. Acute renal failure on chronic kidney disease. 2. End-stage liver disease. 3. Distributive shock related to liver disease versus septic. 4. Hyponatremia. 5. Anemia. 6. Thrombocytopenia. 7. Metabolic acidosis. 8. Atypical chest pain, resolved. 9. Recent esophageal variceal bleed, status post banding. RECOMMENDATIONS: Remains in critical state on Levophed pressor to maintain adequate MAP. Undergoing hemodialysis today for metabolic derangement. Overall the patient has a guarded prognosis. Continue supportive care. Discussed at length with the family. Job#: [id number]
[2018-03-30] MEDS ORDERED: NOREPINEPHRINE 8 MG/D5W 250 ML 250 ML ONE (14:24)
[2018-03-30] MEDS: NOREPINEPHRINE INJ 4MG/4ML 8 MG in DEXTROSE 5% 250ML 250 ML IV PRN (14:25)
[2018-03-30] MEDS ORDERED: PHYTONADIONE IV ONE (15:45)
[2018-03-30] MEDS ORDERED: SODIUM CHLORIDE 0.9% IV ONE (15:45)
[2018-03-30] MEDS ORDERED: THROMBIN FOR SOLN 5,000 UNIT VIAL TOP NR (16:30)
== END 2018-03-30 20:35 | disposition hospice, home (50) | DRG 432 ==
LOC: ER 07:19 → ERHOLD 10:34 → MED/SURG3 17:04 → ERHOLD 17:25 → IMCU 17:28 → OBSVTOIN 03-21 09:33 → MED/SURG 03-21 21:29 → ICU 03-29 08:06
PROVIDERS: ADMIT Internal Medicine; ATTEND Internal Medicine
PROC: 30233K1 Transfusion of Nonautologous Frozen Plasma into Peripheral Vein, Percutaneous Approach (ICD-10-PCS; 2018-03-21)
PROC: 30233N1 Transfusion of Nonautologous Red Blood Cells into Peripheral Vein, Percutaneous Approach (ICD-10-PCS; 2018-03-21)
PROC: 30233R1 Transfusion of Nonautologous Platelets into Peripheral Vein, Percutaneous Approach (ICD-10-PCS; 2018-03-21)
PROC: 06L38CZ Occlusion of Esophageal Vein with Extraluminal Device, Via Natural or Artificial Opening Endoscopic (ICD-10-PCS; principal; 2018-03-22 08:36)
PROC: 02H633Z Insertion of Infusion Device into Right Atrium, Percutaneous Approach (ICD-10-PCS; 2018-03-29)
PROC: 5A1D70Z Performance of Urinary Filtration, Intermittent, Less than 6 Hours Per Day (ICD-10-PCS; 2018-03-29)
PROC: 3E043XZ Introduction of Vasopressor into Central Vein, Percutaneous Approach (ICD-10-PCS; 2018-03-29)
DX: K74.60 Unspecified cirrhosis of liver (principal); I85.11 Secondary esophageal varices with bleeding; K76.7 Hepatorenal syndrome; A41.9 Sepsis, unspecified organism; R65.21 Severe sepsis with septic shock; N17.0 Acute kidney failure with tubular necrosis; K65.2 Spontaneous bacterial peritonitis; D62 Acute posthemorrhagic anemia; K76.6 Portal hypertension; D61.818 Other pancytopenia; E87.2 Acidosis; L03.113 Cellulitis of right upper limb; E03.9 Hypothyroidism, unspecified; I10 Essential (primary) hypertension; K72.90 Hepatic failure, unspecified without coma; R16.1 Splenomegaly, not elsewhere classified; K57.90 Diverticulosis of intestine, part unspecified, without perforation or abscess without bleeding; F10.21 Alcohol dependence, in remission; Z87.891 Personal history of nicotine dependence; E66.01 Morbid (severe) obesity due to excess calories; Z68.32 Body mass index [BMI] 32.0-32.9, adult; Z66 Do not resuscitate; E87.5 Hyperkalemia; E86.0 Dehydration; R07.89 Other chest pain; R53.81 Other malaise
CPT/HCPCS: 36415; 36556; 43235; 71045; 71260; 74176; 74177; 74470; 76937; 80048; 80053; 81001; 82140; 82550; 82553; 82570; 82948; 83605; 83735; 84100; 84300; 84484; 85014; 85018; 85025; 85049; 85610; 86850; 86900; 86920; 87040; 87086; 90962; 93005; 93306; 97139; 99284; C1769; G0378; J0610; J1756; J1940; J2001; J2150; J2185; J2353; J2405; J2550; J3370; J3430; J3475; J7030; J7042; J7050; J7070; J7799; P9016; P9017; P9034; Q9967